=== PATIENT | male | born 1970 | race Caucasian/White ===

== ENCOUNTER 2019-09-04 13:38 | Inpatient (IN) | payer OTHER ==
[~2019-09-04] VITALS: Ht 180 cm; Wt 102.0 kg
[2019-09-04] MEDS ORDERED: NITROGLYCERIN 0.4 MG SL TABS BTL 25'S SL ONE (13:45)
[2019-09-04] MEDS ORDERED: ASPIRIN 81 MG CHEW (CHILDREN'S ASA) PO ONE (13:45)
[2019-09-04] MEDS ORDERED: ASPIRIN 81 MG CHEW (CHILDREN'S ASA) ONE (13:45)
[2019-09-04] MEDS: NITROGLYCERIN 0.4 MG SL TABS BTL 25'S SL PRN ×2 (13:50→14:08)
[2019-09-04 13:58] LABS: BASOPHILS # (AUTO) 0.1 10^3/uL (0.0-0.1); BASOPHILS % (AUTO) 1 % (0-10); EOSINOPHILS # (AUTO) 0.3 10^3/uL (0.0-0.3); EOSINOPHILS % (AUTO) 3 % (0-10); HEMATOCRIT 44 % (40-54); HEMOGLOBIN 14.4 G/DL (13.3-17.7); LYMPHOCYTES # (AUTO) 2.4 X 10^3 (1.0-4.0); LYMPHOCYTES % (AUTO) 25 % (12-44); MEAN CORPUSCULAR HEMOGLOBIN 27 PG (25-34); MEAN CORPUSCULAR HGB CONC 33 G/DL (32-36); MEAN CORPUSCULAR VOLUME 82 FL (80-99); MEAN PLATELET VOLUME 10.4 FL (7.4-10.4); MONOCYTES % (AUTO) 11 % (0-12); NEUTROPHILS # (AUTO) 5.8 X 10^3 (1.8-7.8); NEUTROPHILS % (AUTO) 61 % (42-75); PLATELET COUNT 327 10^3/uL (130-400); RED CELL DISTRIBUTION WIDTH 14.6 % (10.0-14.5); WHITE BLOOD COUNT 9.5 10^3/uL (4.3-11.0)
--- NOTE | 2019-09-04 13:58 | ED Chest Pain ---
General Stated Complaint: CHEST PAIN Source: patient Exam Limitations: no limitations History of Present Illness Date Seen by Provider: Sep 04, 2019 Time Seen by Provider: 13:45 Initial Comments To ER with central chest pressure. He rates this at 7 out of 10. This began one hour ago while at rest at work. He's never had this before except for yesterday when he had it briefly for a few minutes while at rest and it resolved on its own. He states that his father of a heart attack at the age of 34 but he didn't know him well and does not know the details surrounding that. He does have some shortness of breath but no nausea or diaphoresis. He is a diabetic with high cholesterol. He is a nonsmoker area he has no personal history of he art disease. 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 NTG SL WHEEL SETTER: No Associated Symptoms: No nausea/vomiting Allergies and Home Medications Allergies Coded Allergies: No Known Drug Allergies (Unverified , 09/04/19) Patient Home Medication List Home Medication List Reviewed: Yes Review of Systems Review of Systems Constitutional: see HPI EENTM: No Symptoms Reported Respiratory: No Symptoms Reported Cardiovascular: See HPI, Chest Pain Gastrointestinal: No Symptoms Reported Genitourinary: No Symptoms Reported Musculoskeletal: no symptoms reported Skin: no symptoms reported Psychiatric/Neurological: No Symptoms Reported Endocrine: No Symptoms Reported Hematologic/Lymphatic: No Symptoms Reported Physical Exam Vital Signs Capillary Refill : Height, Weight, BMI Height: '" Weight: lbs. oz. kg; BMI Method: General Appearance: No Apparent Distress, WD/WN HEENT: PERRL/EOMI, TMs Normal Neck: Full Range of Motion, Normal Inspection Respiratory: No Accessory Muscle Use, No Respiratory Distress Cardiovascular: Regular Rate, Rhythm, Normal Peripheral Pulses Gastrointestinal: Normal Bowel Sounds, Non Tender, Soft Extremity: Normal Capillary Refill, Normal Inspection Neurologic/Psychiatric: Alert, Oriented x3 Skin: Normal Color, Warm/Dry Progress/Results/Core Measures Results/Orders Lab Results Laboratory Tests Test 09/04/19 13:45 Range/Units My Orders Orders - SILVANO ANGELES APRN Cbc With Automated Diff (09/04/19 13:45) Magnesium (09/04/19 13:45) Chest 1 View, Ap/Pa Only (09/04/19 13:45) Ekg Tracing (09/04/19 13:45) Comprehensive Metabolic Panel (09/04/19 13:45) Myoglobin Serum (09/04/19 13:45) Protime With Inr (09/04/19 13:45) Partial Thromboplastin Time (09/04/19 13:45) O2 (09/04/19 13:45) Monitor-Rhythm Ecg Trace Only (09/04/19 13:45) Lipid Panel (09/05/19 06:00) Ed Iv/Invasive Line Start (09/04/19 13:45) Troponin I (09/04/19 13:45) Aspirin Chewable Tablet (Baby Aspirin Ch (09/04/19 13:45) Nitroglycerin 0.4 Mg Btl 25's (Nitrostat (09/04/19 13:45) Departure Impression Primary Impression: Chest pain Qualified Codes: R07.9 - Chest pain, unspecified Disposition: ADMITTED INPATIENT Condition: Stable Admissions Decision to Admit Reason: Admit from ER (General) Decision to Admit/Date: Sep 04, 2019 Time/Decision to Admit Time: 13:58 Departure-Patient Inst. Referrals: ANTONIO KATHLEEN DO (PCP/Family) Primary Care Physician SILVANO ANGELES APRN Sep 04, 2019 13:58
[2019-09-04 14:08] LABS: ALBUMIN 4.9 GM/DL (3.2-4.5); PROTHROMBIN TIME PATIENT 13.3 SEC (12.2-14.7)
[2019-09-04 14:09] LABS: CHLORIDE 103 MMOL/L (98-107); POTASSIUM 3.6 MMOL/L (3.6-5.0); SODIUM 142 MMOL/L (135-145)
[2019-09-04 14:10] LABS: CALCIUM 9.8 MG/DL (8.5-10.1)
[2019-09-04] MEDS ORDERED: NS IV 1000 ML 1,000 ML ONE (14:10)
[2019-09-04] MEDS ORDERED: MIDAZOLAM 5 MG/5 ML (VERSED) VIAL ONE (14:10)
[2019-09-04] MEDS ORDERED: fentaNYL INJECTION 100 MCG/2 ML AMP ONE (14:10)
[2019-09-04 14:11] LABS: GLUCOSE 157 MG/DL (70-105)
[2019-09-04 14:12] LABS: CARBON DIOXIDE 26 MMOL/L (21-32)
[2019-09-04] MEDS ORDERED: METFORMIN (14:12)
[2019-09-04] MEDS ORDERED: ATORVASTATIN (14:12)
[2019-09-04] MEDS ORDERED: LISINOPRIL (14:12)
[2019-09-04 14:13] LABS: BILIRUBIN,TOTAL 0.4 MG/DL (0.1-1.0)
[2019-09-04 14:14] LABS: ALKALINE PHOSPHATASE 89 U/L (40-136)
[2019-09-04] MEDS ORDERED: LIDOCAINE 1% INJ 20 ML 20 ML VIAL ONE (14:14)
[2019-09-04 14:15] LABS: CREATININE SERUM 0.99 MG/DL (0.60-1.30); GFR ESTIMATED > 60
[2019-09-04] MEDS ORDERED: HEParin (CATH LAB) 2,000 ML IV ONE (14:15)
[2019-09-04 14:16] LABS: BUN/CREATININE RATIO 15
[2019-09-04 14:18] LABS: ALANINE AMINOTRANSFERASE 36 U/L (0-55); MAGNESIUM 1.9 MG/DL (1.6-2.4)
--- NOTE | 2019-09-04 14:20 | NUR ---
CONSENT FOR HEART CATH SIGNED
--- NOTE | 2019-09-04 14:25 | Cardiology History & Physical ---
HPI-Cardiology Cardiology Consultation Date of Consultation 09/04/19 Date of Admission Time Seen by Provider: 14:22 Indication: Chest pain HPI 48 years old gentleman with history of hypertension, hyperlipidemia, family history of heart disease, father in his 30s with heart attack. Had an episode of chest pain yesterday which was short-lived in the retrosternal area, started having chest pain this afternoon and came to the emergency room. Given 3 sublingual nitroglycerin still having mild chest pain. No palpitation, no shortness of breath. No syncope or near syncopal episodes. No previous cardiac history, blood pressure is elevated. PMH-Cardiology Surgeries No Respiratory No Cardiovascular Yes Neurological No Genitourinary No Gastrointestinal No Musculoskeletal No Endocrine No HEENT No Cancer No Psychosocial No Integumentary No Social History Patient Social History Marrital Status: Employed/Student: employed Alcohol Use: Denies Use Recreational Drug Use: No Recent Foreign Travel: No Contact w/other who traveled: No Recent Infectious Disease Expo: No Family Hx Other Father in his 30s with heart attack ROS-Cardiology Review of Systems General: No Chills, No Night Sweats, No Fatigue, No Malaise, No Appetite HEENT: No Head Aches, No Visual Changes, No Eye Pain, No Ear Pain, No Dysphasia, No Sinus Congestion, No Post Nasal Drip, No Sore Throat Pulmonary: No Dyspnea, No Cough, No Pleuritic Chest Pain Cardiovascular: Chest Pain; No: Palpitations, Orthopnea, Paroxysmal Noc. Dyspnea, Edema, Lt Headedness Gastrointestinal: No: Nausea, Vomiting, Abdominal Pain, Diarrhea, Constipation, Melena, Hematochezia Genitourinary: No Dysuria, No Frequency, No Incontinence, No Hematuria, No Retention Musculoskeletal: No: neck pain, shoulder pain, arm pain, back pain, hand pain, leg pain, foot pain Neurological: No: Weakness, Numbness, Incoordination, Change in speech, Confusion, Seizures Home Medications & Allergies Allergies: Coded Allergies: No Known Drug Allergies (Unverified , 09/04/19) Home Medication List Reviewed: Yes Exam-Cardiology Vital Signs Vital Signs Date Time Temp Pulse Resp B/P (MAP) Pulse Ox O2 Delivery O2 Flow Rate FiO2 09/04/19 14:23 36.1 104 18 198/117 (142) 96 09/04/19 13:40 Room Air Exam General Appearance: Alert, Oriented X3, Cooperative, No Acute Distress HEENT: Atraumatic, PERRLA Respiratory: Clear to Auscultation, Normal Air Movement Cardiovascular: Regular Rate, Normal S1, Normal S2, No Murmurs Abdominal: Normal Bowel Sounds, Soft, No Tenderness, No Hepatosplenomegaly, No Masses Extremities: No Clubbing, No Cyanosis, No Edema, Normal Pulses, No Tenderness/Swelling Skin: No Rashes, No Breakdown, No Significant Lesion Neuro: Normal Gait, Normal Speech, Strength at 5/5 X4 Ext, Normal Tone, Sensation Intact Psych/Mental Status: Mental Status NL, Mood NL Results Labs Labs Laboratory Tests 09/04/19 13:45: White Blood Count 9.5, Red Blood Count 5.38, Hemoglobin 14.4, Hematocrit 44, Mean Corpuscular Volume 82, Mean Corpuscular Hemoglobin 27, Mean Corpuscular Hemoglobin Concent 33, Red Cell Distribution Width 14.6H, Platelet Count 327, Mean Platelet Volume 10.4, Neutrophils (%) (Auto) 61, Lymphocytes (%) (Auto) 25, Monocytes (%) (Auto) 11, Eosinophils (%) (Auto) 3, Basophils (%) (Auto) 1, Neutrophils # (Auto) 5.8, Lymphocytes # (Auto) 2.4, Monocytes # (Auto) 1.0, Eosinophils # (Auto) 0.3, Basophils # (Auto) 0.1, Prothrombin Time 13.3, INR Comment 1.0, Activated Partial Thromboplast Time 33, Sodium Level 142, Potassium Level 3.6, Chloride Level 103, Carbon Dioxide Level 26, Anion Gap 13, Blood Urea Nitrogen 15, Creatinine 0.99, Estimat Glomerular Filtration Rate > 60, BUN/C reatinine Ratio 15, Glucose Level 157H, Calcium Level 9.8, Corrected Calcium , Magnesium Level 1.9, Total Bilirubin 0.4, Aspartate Amino Transf (AST/SGOT) 23, Alanine Aminotransferase (ALT/SGPT) 36, Alkaline Phosphatase 89, Myoglobin 48.9, Troponin I 0.038H, Total Protein 8.0, Albumin 4.9H A/P-Cardiology Admission Diagnosis Non-ST elevation myocardial infarction Coronary artery disease Hypertensive emergency Hyperlipidemia Admission Status: Inpatient Order (span 2 midnights) Reason for Inpatient Admission: Non-ST elevation myocardial infarction Hypertensive emergency Assessment/Plan Chest pain, non-ST elevation myocardial infarction, mild elevation in troponin. Discussed the management plan recommended cardiac catheterization possible PTCA. I will proceed with the procedure today. Directly brought from the emergency room Hypertensive emergency, blood pressure is elevated, given multiple doses of sublingual nitroglycerin, I will use IV beta blockers and JONATHAN inhibitor in the Director Perioperative. Hyperlipidemia, monitor lipids, restart medication Family history of heart attack, father in his 30s with heart attack Addendum on September 04, 2019 at 1535 p.m. Hospital course: Patient underwent cardiac catheterization showing severe multivessel disease, arrangement to transfer to [facility] for evaluation for CABG was made. Final diagnoses: Non-ST elevation myocardial infarction Coronary artery disease Hypertensive emergency Hyperlipidemia Clinical Quality Measures AMI/AHF: ASA po Prior to arrival: AMY Chen MD Sep 04, 2019 14:25
--- NOTE | 2019-09-04 14:37 | Diagnostic Imaging Report ---
INDICATION: Chest pain began one hour ago . FINDINGS: The heart size and its configuration are unremarkable. There is no vascular congestion. The mediastinal contour was normal. The lungs clear. No failure, effusion or pneumothorax. IMPRESSION: Negative. Dictated by: Dictated on workstation # [id number]
[2019-09-04] MEDS ORDERED: VERAPAMIL 5 MG/2 ML (CALAN) VIAL IV ONE (14:48)
[2019-09-04] MEDS ORDERED: HEParin 1000 UNIT/ML (10ML VIAL) FOR BOLUS ONE (14:48)
[2019-09-04] MEDS ORDERED: NITRO DRIP 25000 MCG/D5W 250 ML IV ONE (14:48)
[2019-09-04] MEDS ORDERED: meTOprolol 5 MG/5 ML (LOPRESSOR) VIAL ONE (14:54)
[2019-09-04] MEDS ORDERED: NS IV 1000 ML 1,000 ML IV SCH (15:32)
--- NOTE | 2019-09-04 15:35 | Discharge Inst-Post CATH ---
Discharge Inst-CATH/EP Problems Reviewed?: Yes Post Cardiac Cath/EP D/C Inst Follow Up/Plan Appointment with Dr. Guevara's office in 2 weeks <b>CARDIAC CATH/EP PROCEDURE DISCHARGE INSTRUCTIONS</b> ACTIVITY * Go Home directly and rest. * Limit activity of the leg (or wrist if it was used) for 7 days including aerobics, swimming, jogging, bicycling, etc. * Restrict stair-climbing for 7 days if possible, if not, climb up with your non-cath leg, then bring together on the same step. * Avoid lifting, pushing, pulling or excessive movement of the affected extremity for 7 days. * Customary sexual activity may be resumed after 2 days-use caution not to use a position that strains or causes pain to the affected extremity. * No driving for 24 hours. * NO SMOKING. * Avoid straining for bowel movements for 7 days. * Gentle walking on level ground is allowed. * Returning to work will depend on the type of procedure and the results. Your doctor will discuss this with you. CALL YOUR DOCTOR FOR ANY OF THE FOLLOWING: *If bleeding from the puncture site occurs- Apply gentle pressure to site with clean cloth and call your doctor or EMS. * If a knot or lump forms under the skin, increases in size, or causes pain. * If bruising appears to be worsening or moving further down your leg instead of disappearing. * Temperature above 101 F. CARE OF YOUR GROIN INCISION; * Bruising or purple discoloration of the skin near the puncture site is common. * You may shower only, no bathtub bathing for 5 days. Be careful to avoid slipping as your leg may feel stiff. * If a closure device was used on your femoral artery, please see the attached guide regarding care of the device and your leg. * Leave dressing on FOR 24 hours. CARE OF YOUR WRIST INCISION; * Bruising or purple discoloration of the skin near the puncture site is common. * You may shower. * DO NOT submerge wrist. * Leave dressing on FOR 24 hours. AMY GUEVARA MD Sep 04, 2019 15:35
--- NOTE | 2019-09-04 15:43 | Cardiac Cath Report ---
Cardiac Cath Report Physician (s)/Esol Instructor (s) Physician AMY ROCKWELL MD Pre-Procedure Diagnosis Pre-Procedure Diagnosis: Non-ST elevation myocardial infarction Post-Procedure Note Procedure Start Date: Sep 04, 2019 Name of Procedure: Left heart Catheterization Left ventriculogram Aortic arch angiogram Findings/Procedure Note PROCEDURE NOTE: 48 years old gentleman with history of hypertension, hyperlipidemia, strong family history of heart disease admitted with non-ST elevation of cardiac infarction has been having chest pain since the morning. Some improvement with nitroglycerin but no full relief, slight elevation in troponin, no acute EKG changes, decision was made to proceed with cardiac catheterization possible PTCA. After explaining the procedure to the patient, all pros and cons were explained, all questions were answered. The patient signed the consent and then he was placed on the cardiac catheterization laboratory. Groin was prepped SL fashion local anesthesia was used. Sheath placed in the right radial artery, [place] catheter was used addressed of the left ventricular cavity, pressure was measured, left ventricular gram was done, pullback LV to aorta was done. Evaluated the right and left coronary system, angiogram was done then it was pulled to the aortic arch and aortic arch angiogram was done. At the end of the procedure the sheath was removed. Vascular band was used FINDINGS: Hemodynamics LV 125/24, elevated left ventricular end-diastolic pressure Aorta 140/97 mean of 116 ANATOMY: Left Main is free of obstructive disease Left Anterior Descending had ulcerated plaque proximally, multiple segment of s evere stenosis in the mid and distal LAD Left Circumflex to severe lesions at the mid and distal circumflex artery Right Coronory Artery is large dominant artery with moderate disease at the proximal and and midportion severe disease at the right PDA LV Gram was done showing normal left ventricular size with normal contraction. Estimated ejection fraction 60 percent Aorta evaluation showed normal aortic arch, no dissection, no aneurysm, normal origin of the right brachiocephalic artery, left subclavian and left carotid arteries CONCLUSION: 1. Severe multivessel disease including multiple segment of severe stenosis in the proximal and mid and distal LAD, mid and distal circumflex artery, moderate disease in the proximal and midright coronary artery has severe disease of the right PDA. 2. Normal left ventricular size and systolic function estimated ejection fraction 60 percent, elevated left ventricular end-diastolic pressure 3. Normal aortic arch and great vessels of the neck DISCUSSION AND RECOMMENDATION: Hospital course: Patient was admitted directly from the emergency room to the catheter lab, procedure was done, he was severely hypertensive. I started him on nitroglycerin drip, after reviewing his coronary anatomy I discussed with him and his the management per recommended transfer to a tertiary care center for evaluation for CABG. Arrangement were made for transfer to [facility], I contacted Dr. eduarod who graciously accepted the patient. Final diagnosis Non-ST elevation myocardial infarction Coronary artery disease Hypertensive emergency Hyperlipidemia Anesthesia Type: Conscious Sedation Estimated blood loss (mL): 5 ml Contrast Amount: 63 ml Total Radiation Dose: 521 mGy Post-Procedure Diagnosis Post-operative diagnosis: Non-ST elevation myocardial infarction Coronary artery disease Hypertensive emergency Hyperlipidemia AMY ROCKWELL MD Sep 04, 2019 15:43
[2019-09-04] MEDS ORDERED: PATIENT MAY USE OWN MEDS, ALL PO SCH (15:45)
[2019-09-04] MEDS ORDERED: NITRO DRIP 25000 MCG/D5W 250 ML IV SCH (15:45)
[2019-09-04 16:15] VITALS: BP 158/92
--- NOTE | 2019-09-04 16:42 | NUR ---
PT ARRIVED TO UNIT AT 1538, RIGHT WRIST ASSESSED AND IS BENIGN. PT DENIES ANY CHEST PAIN OR OTHER COMPLAINTS. PT WILL GO TO ROOM 290 AT [facility] AND REPORT CALLED TO [phone]. [facility] CALLED AND PICKED UP PATIENT AT 1642. PT DENIED ANY COMPLAINTS AND WRIST SITE BENIGN UPON DISCHARGE. ALL PERSONAL BELONGINGS WITH PATIENTS .
[2019-09-05] MEDS ORDERED: ASPIRIN E.C. 81 MG (ECOTRIN) TAB PO SCH (09:00)
== END 2019-09-04 16:42 | disposition short-term general hospital (02) | DRG 282 ==
LOC: EDUNIT# 13:38 → ER 13:40 → CATH 14:20 → ICU 15:30
PROVIDERS: ADMIT Internal Medicine Cardiovascular Disease; ATTEND Internal Medicine Cardiovascular Disease
PROC: 4A023N7 Measurement of Cardiac Sampling and Pressure, Left Heart, Percutaneous Approach (ICD-10-PCS; principal; 2019-09-04)
PROC: B2151ZZ Fluoroscopy of Left Heart using Low Osmolar Contrast (ICD-10-PCS; 2019-09-04)
PROC: B3101ZZ Fluoroscopy of Thoracic Aorta using Low Osmolar Contrast (ICD-10-PCS; 2019-09-04)
DX: I21.4 Non-ST elevation (NSTEMI) myocardial infarction (principal); I25.10 Atherosclerotic heart disease of native coronary artery without angina pectoris; I16.0 Hypertensive urgency; E78.5 Hyperlipidemia, unspecified; E78.00 Pure hypercholesterolemia, unspecified; E11.9 Type 2 diabetes mellitus without complications; Z82.49 Family history of ischemic heart disease and other diseases of the circulatory system
CPT/HCPCS: 36221; 36415; 71045; 80053; 83735; 83874; 84484; 85025; 85610; 85730; 93005; 93041; 93458

== ENCOUNTER → 2019-09-17 | Outpatient (CLI) | payer OTHER ==
[~2019-09-17] MED LIST: ATORVASTATIN; LISINOPRIL; METFORMIN
[2019-09-17 17:13] LABS: BASOPHILS % (AUTO) 1 % (0-10); EOSINOPHILS % (AUTO) 2 % (0-10); HEMATOCRIT 32 % (40-54); HEMOGLOBIN 10.2 G/DL (13.3-17.7); LYMPHOCYTES % (AUTO) 20 % (12-44); MEAN CORPUSCULAR HEMOGLOBIN 26 PG (25-34); MEAN CORPUSCULAR HGB CONC 32 G/DL (32-36); MEAN CORPUSCULAR VOLUME 83 FL (80-99); MEAN PLATELET VOLUME 10.1 FL (7.4-10.4); MONOCYTES % (AUTO) 9 % (0-12); NEUTROPHILS % (AUTO) 68 % (42-75); PLATELET COUNT 514 10^3/uL (130-400); RED CELL DISTRIBUTION WIDTH 14.4 % (10.0-14.5)
[2019-09-17 17:14] LABS: BASOPHILS # (AUTO) 0.1 10^3/uL (0.0-0.1); EOSINOPHILS # (AUTO) 0.3 10^3/uL (0.0-0.3); LYMPHOCYTES # (AUTO) 2.6 X 10^3 (1.0-4.0); MONOCYTES # (AUTO) 1.2 X 10^3 (0.0-1.0); NEUTROPHILS # (AUTO) 8.9 X 10^3 (1.8-7.8)
[2019-09-17 17:29] LABS: ALBUMIN 4.1 GM/DL (3.2-4.5); BUN/CREATININE RATIO 24; CALCIUM 9.5 MG/DL (8.5-10.1); CARBON DIOXIDE 26 MMOL/L (21-32); CHLORIDE 96 MMOL/L (98-107); CREATININE SERUM 0.78 MG/DL (0.60-1.30); GFR ESTIMATED > 60; GLUCOSE 116 MG/DL (70-105); POTASSIUM 4.9 MMOL/L (3.6-5.0); SODIUM 137 MMOL/L (135-145)
[2019-09-18 14:52] LABS: PHOSPHORUS 4.9 MG/DL (2.3-4.7)
== END ==
LOC: LAB FS 16:44
PROVIDERS: ATTEND Thoracic Surgery (Cardiothoracic Vascular Surgery)
DX: I25.10 Atherosclerotic heart disease of native coronary artery without angina pectoris (principal); I10 Essential (primary) hypertension; Z20.828 Contact with and (suspected) exposure to other viral communicable diseases
CPT/HCPCS: 36415; 80069; 85025; 86769

== ENCOUNTER → 2020-07-29 | Outpatient (CLI) | payer OTHER | LOC: CARD 10:30 | PROVIDERS: ATTEND Internal Medicine Cardiovascular Disease | DX: I34.0 Nonrheumatic mitral (valve) insufficiency (principal); I11.9 Hypertensive heart disease without heart failure; Z95.1 Presence of aortocoronary bypass graft | CPT/HCPCS: 93306 ==

== ENCOUNTER → 2020-09-12 | Outpatient (CLI) | payer OTHER ==
[~2020-09-12] VITALS: Ht 180 cm; Wt 98.0 kg
[~2020-09-12] MED LIST changes: +CATHETER FLUSH 10 ML SYR IV PRN
[2020-09-12 09:33] VITALS: BP 150/84
--- NOTE | 2020-09-12 16:02 | STRESS TEST ---
DATE OF SERVICE: 09/12/2020 RESTING AND POST EXERCISE TECHNETIUM-99M TETROFOSMIN SPECT IMAGING ORDERING PHYSICIAN: Dr. Guevara. PRIMARY PHYSICIAN: Dr. Jenkins. CLINICAL DIAGNOSIS: Chest discomfort, hypertension. Baseline images were carried out after injection of 10.76 mCi of technetium-99m Tetrofosmin. This was followed by exercise on a treadmill. Yogi protocol was employed. After the patient had attained 85% of maximum predicted heart rate, 30.9 mCi of technetium-99m Tetrofosmin were injected and the exercise was continued for another minute. He exhibited a hypertensive blood pressure response exercise. There was [address] segment depression in the immediate post-exercise phase. The patient did not report symptoms. Review of images at rest and following stress does not indicate any distinct evidence of significant myocardial ischemia. Some degree of breast attenuation is seen both at rest and following exercise. Image acquisition after stress is difficult because of considerable patient motion. Gated images show normal global left ventricular systolic function with a calculated ejection fraction of 56%. Left ventricular end diastolic volume is 66 mL. TID is absent (1.02). CONCLUSIONS: 1. No evidence of any significant myocardial ischemia or infarction on this study. 2. Normal regional wall motion. 3. Normal global left ventricular systolic function with a calculated ejection fraction of 56%. 4. Hypertensive blood pressure response to exercise. Job ID: [id number] DocumentID: [id number] Dictated Date: 09/12/2020 12:38:31 Merchandise Executive Date: 09/12/2020 16:00:13 Dictated By: BRANDEE RENEE MD, MA, FACP, FACC,
== END ==
LOC: CARD 08:30
PROVIDERS: ATTEND Internal Medicine Cardiovascular Disease
DX: R07.9 Chest pain, unspecified (principal); I10 Essential (primary) hypertension
CPT/HCPCS: 78452; 93017; A9502

== ENCOUNTER → 2021-05-01 | Outpatient (CLI) | payer OTHER ==
[~2021-05-01] MED LIST changes: -CATHETER FLUSH 10 ML SYR IV PRN
== END ==
LOC: LABNPT 06:18
PROVIDERS: ATTEND Ophthalmology Retina Specialist
DX: Z01.812 Encounter for preprocedural laboratory examination (principal); Z20.822 Contact with and (suspected) exposure to COVID-19
CPT/HCPCS: 87635; 87636

== ENCOUNTER → 2021-05-29 | Outpatient (CLI) | payer OTHER | LOC: LABNPT 08:37 | PROVIDERS: ATTEND Ophthalmology Retina Specialist | DX: Z20.822 Contact with and (suspected) exposure to COVID-19 (principal) | CPT/HCPCS: 87636 ==

== ENCOUNTER 2021-08-28 13:47 | Inpatient (IN) | payer OTHER ==
[~2021-08-28] VITALS: Ht 180.3 cm; Wt 100.7 kg
[2021-08-28] MEDS ORDERED: ONDANSETRON 4 MG/2 ML (SDV) Z0FRAN IVP ONE (14:00)
[2021-08-28] MEDS ORDERED: PANTOPRAZOLE 40 MG (PROTONIX) VIAL IV ONE (14:00)
--- NOTE | 2021-08-28 14:06 | ED Abdominal Pain ---
General Chief Complaint: Abdominal/GI Problems Stated Complaint: HIGH BLOOD SUGAR,WEAKNESS,DIZZINESS Source of Information: Patient Exam Limitations: No Limitations History of Present Illness Date Seen by Provider: August 28, 2021 Time Seen by Provider: 14:03 Initial Comments To ER by private vehicle from home with reports of epigastric abdominal pain, high blood sugar in the 260 range, weakness, nausea, dizziness and fatigue. He had trouble walking from his bedroom to the living room due to the weakness. He has had dark black stools since yesterday. He had 1 dark black stool on ay of last week. No history of this. He is on aspirin and metoprolol. History of coronary artery disease status post three-vessel CABG and diabetes. He thought he might be constipated so he took a bottle of magnesium citrate prior to coming here which he then vomited. Timing/Duration: 1-2 Days Severity/Quality: Moderate Location: Epigastric Radiation: No Radiation Activities at Onset: None Associated Symptoms: Nausea/Vomiting Allergies and Home Medications Allergies Coded Allergies: No Known Drug Allergies (Unverified , 09/04/19) Patient Home Medication List Home Medication List Reviewed: Yes [Atorvastatin] , (Reported) Entered as Reported by: KEEGAN MAURER on 09/04/191411 [Lisinopril] , (Reported) Entered as Reported by: KEEGAN MAURER on 09/04/191411 [Metformin] , (Reported) Entered as Reported by: KEEGAN MAURER on 09/04/191411 Review of Systems Review of Systems Constitutional: see HPI EENTM: No Symptoms Reported Respiratory: Denies See HPI, Denies Cough, Denies Orthopnea, Denies Shortness of Air Cardiovascular: See HPI; Denies Chest Pain, Denies Edema, Denies Irregular Heart Rate; Lightheadedness; Denies Palpitations, Denies Syncope Gastrointestinal: See HPI, Abdominal Pain, Diarrhea, Nausea Genitourinary: No Symptoms Reported Musculoskeletal: no symptoms reported Skin: no symptoms reported Psychiatric/Neurological: No Symptoms Reported Endocrine: No Symptoms Reported Hematologic/Lymphatic: No Symptoms Reported Past Squtthz-Qycvqc-Tmqtsu Hx Past Medical History Surgeries: No Respiratory: No Cardiac: Yes High Cholesterol, Hypertension Neurological: No Genitourinary: No Gastrointestinal: No Musculoskeletal: No Endocrine: No HEENT: No Cancer: No Psychosocial: No Integumentary: No Physical Exam Vital Signs Vital Signs - First Documented 08/28/21 14:02 Temp 36.5 Pulse 105 Resp 18 B/P (MAP) 120/71 (87) Pulse Ox 97 Capillary Refill : Height/Weight/BMI Height: '" Weight: lbs. oz. kg; 30.24 BMI Method: General Appearance: WD/WN, no apparent distress, other (Pale, pale conjunctivae. Heart rate is 100 sinus, blood pressure 120/71. Alert mentating well. He does appear ill.) HEENT: PERRL/EOMI, normal ENT inspection, other (Pale conjunctivae) Neck: non-tender, full range of motion Respiratory: normal breath sounds, no respiratory distress, no accessory muscle use Cardiovascular: regular rate, rhythm, no murmur Gastrointestinal: normal bowel sounds, soft, tenderness (Minimal epigastric tenderness) Extremities: normal range of motion, non-tender Neurologic/Psychiatric: alert, normal mood/affect, oriented x 3 Skin: normal color, warm/dry Progress/Results/Core Measures Results/Orders Lab Results Laboratory Tests Test 08/28/21 13:58 Range/Units White Blood Count 15.5 H 4.3-11.0 10^3/uL Red Blood Count 2.87 L 4.30-5.52 10^6/uL Hemoglobin 7.9 L 13.3-17.7 g/dL Hematocrit 25 L 40-54 % Mean Corpuscular Volume 86 80-99 fL Mean Corpuscular Hemoglobin 28 25-34 pg Mean Corpuscular Hemoglobin Concent 32 32-36 g/dL Red Cell Distribution Width 14.0 10.0-14.5 % Platelet Count 314 130-400 10^3/uL Mean Platelet Volume 10.9 9.0-12.2 fL Immature Granulocyte % (Auto) 1 % Neutrophils (%) (Auto) 73 42-75 % Lymphocytes (%) (Auto) 18 12-44 % Monocytes (%) (Auto) 7 0-12 % Eosinophils (%) (Auto) 0 0-10 % Basophils (%) (Auto) 1 0-10 % Neutrophils # (Auto) 11.3 H 1.8-7.8 10^3/uL Lymphocytes # (Auto) 2.7 1.0-4.0 10^3/uL Monocytes # (Auto) 1.1 H 0.0-1.0 10^3/uL Eosinophils # (Auto) 0.0 0.0-0.3 10^3/uL Basophils # (Auto) 0.1 0.0-0.1 10^3/uL Immature Granulocyte # (Auto) 0.2 H 0.0-0.1 10^3/uL Neutrophils % (Manual) 78 % Lymphocytes % (Manual) 17 % Monocytes % (Manual) 5 % Microcytosis SLIGHT Sodium Level 135 135-145 MMOL/L Potassium Level 4.6 3.6-5.0 MMOL/L Chloride Level 102 98-107 MMOL/L Carbon Dioxide Level 21 21-32 MMOL/L Anion Gap 12 5-14 MMOL/L Blood Urea Nitrogen 39 H 7-18 MG/DL Creatinine 0.75 0.60-1.30 MG/DL Estimat Glomerular Filtration Rate 110 BUN/Creatinine Ratio 52 Glucose Level 268 H 70-105 MG/DL Calcium Level 8.5 8.5-10.1 MG/DL Corrected Calcium 8.7 8.5-10.1 MG/DL Total Bilirubin 0.3 0.1-1.0 MG/DL Aspartate Amino Transf (AST/SGOT) 19 5-34 U/L Alanine Aminotransferase (ALT/SGPT) 37 0-55 U/L Alkaline Phosphatase 66 40-136 U/L Troponin I < 0.028 <0.028 NG/ML Total Protein 5.7 L 6.4-8.2 GM/DL Albumin 3.7 3.2-4.5 GM/DL Lipase 23 8-78 U/L My Orders Orders - SILVANO ANGELES APRN Ekg Tracing (08/28/21 14:01) Cbc With Automated Diff (08/28/21 14:00) Comprehensive Metabolic Panel (08/28/21 14:00) Lipase (08/28/21 14:00) Ua Culture If Indicated (08/28/21 14:00) Ed Iv/Invasive Line Start (08/28/21 14:00) Troponin I David (08/28/21 14:00) Ekg Tracing (08/28/21 14:00) Chest 1 View, Ap/Pa Only (08/28/21 14:00) Ct Abdomen/Pelvis Wo (08/28/21 14:00) Ondansetron Injection (Zofran Injectio (08/28/21 14:00) Pantoprazole Injection (Protonix Injecti (08/28/21 14:00) Red Cells Leukocytes Reduced (08/28/21 14:00) Type And Screen (08/28/21 14:00) Manual Differential (08/28/21 13:58) Lactated Ringers (Lr 1000 Ml Iv Solution (08/28/21 14:30) Medications Given in ED Current Medications Medications Dose Ordered Sig/Kajal Route Start Time Stop Time Status Last Admin Dose Admin Ondansetron HCl 8 mg ONCE ONCE IVP 08/28/21 14:00 08/28/21 14:03 DC 08/28/21 14:13 8 MG Pantoprazole 40 mg ONCE ONCE IV 08/28/21 14:00 08/28/21 14:03 DC 08/28/21 14:13 40 MG Vital Signs/I&O 08/28/21 14:02 Temp 36.5 Pulse 105 Resp 18 B/P (MAP) 120/71 (87) Pulse Ox 97 Departure Communication (Admissions) 1524-spoke with Dr. Hayward will admit consult Dr. Zelaya. I will do Protonix 40 mg IV twice daily as well as Reglan 10 mg IV 3 times daily. Using the Reglan because his stomach is quite distended on CT and he only had a few strawberries for lunch, no breakfast and no food intake since last night. He is diabetic and I suspect diabetic gastroparesis. He reports nausea and a sensation of stomach fullness. No obstruction on CT. His hemoglobin is low at 7.9, he is short of breath with exertion fatigued and has black stools. His BUN is disproportionately elevated compared to the creatinine supporting diagnosis of upper GI bleed. We will consult Dr. Zelaya for that reason. He is crossmatched for 3 units of packed red cells if he should need them. Repeat CBC for tomorrow morning. Family Conversation NAME: BOOGIE OLIVARES [facility] REC#: [id number] PT STATUS: REG ER : 1970 PHYSICIAN: SILVANO ANGELES APRN ADMIT DATE: 08/28/21/ER Draft Date of Exam:08/28/21 CT ABDOMEN/PELVIS WO PROCEDURE: CT abdomen and pelvis without contrast. TECHNIQUE: Multiple contiguous axial images were obtained through the abdomen and pelvis without the use of intravenous contrast. Auto Exposure Controls were utilized during the CT exam to meet ALARA standards for radiation dose reduction. INDICATION: Mid abdominal pain. COMPARISON: No prior studies are available for comparison. The lung bases are clear. The liver and gallbladder are unremarkable. No biliary ductal dilatation is seen. The pancreas and spleen are unremarkable. This a small accessory spleen in the left upper quadrant. No adrenal mass is seen on the right. There is a fatty adrenal nodule on the left, likely a myolipoma. Kidneys are without calculi or hydronephrosis. Aorta is nonaneurysmal. Small and large bowel loops are normal caliber. There is no obstruction. No free fluid or fluid collection is seen. Bladder and prostate are unremarkable. There are fat-containing inguinal hernias bilaterally. IMPRESSION: 1. No acute abnormality in the abdomen or pelvis is identified. 2. Bilateral fat-containing inguinal hernias. 3. Fatty left adrenal nodule suggestive of small myolipoma. Dictated on workstation # [id number] Dict: 08/28/21 1434 Trans: 08/28/21 1446 [facility] [id number] Interpreted by: MARK RAMOS MD Electronically signed by: NAME: BOOGIE OLIVARES [facility] REC#: [id number] PT STATUS: REG ER : 1970 PHYSICIAN: SILVANO ANGELES APRN ADMIT DATE: 08/28/21/ER Draft Date of Exam:08/28/21 CHEST 1 VIEW, AP/PA ONLY Indication: Nausea and vomiting and dark stools. Time of Exam: 2:24 PM Correlation is made with prior chest 09/04/2019. Heart size is stable. There are changes of median sternotomy. Lungs are clear. No infiltrates are seen. There is no effusion or pneumothorax. IMPRESSION: No acute cardiopulmonary process is detected. Dictated on workstation # [id number] Dict: 08/28/21 1433 Trans: 08/28/21 1437 [facility] [id number] Interpreted by: MARK RAMOS MD Electronically signed by: Impression Primary Impression: Upper GI bleed Additional Impression: Symptomatic anemia Disposition: ADMITTED INPATIENT Condition: Stable Admissions Decision to Admit Reason: Admit from ER (General) Departure-Patient Inst. Referrals: ANTONIO KATHLEEN DO (PCP/Family) Primary Care Physician SILVANO ANGELES APRN August 28, 2021 14:05
[2021-08-28 14:07] LABS: BASOPHILS # (AUTO) 0.1 10^3/uL (0.0-0.1); BASOPHILS % (AUTO) 1 % (0-10); EOSINOPHILS % (AUTO) 0 % (0-10); HEMATOCRIT 25 % (40-54); HEMOGLOBIN 7.9 g/dL (13.3-17.7); LYMPHOCYTES # (AUTO) 2.7 10^3/uL (1.0-4.0); LYMPHOCYTES % (AUTO) 18 % (12-44); MEAN CORPUSCULAR HEMOGLOBIN 28 pg (25-34); MEAN CORPUSCULAR HGB CONC 32 g/dL (32-36); MEAN CORPUSCULAR VOLUME 86 fL (80-99); MEAN PLATELET VOLUME 10.9 fL (9.0-12.2); MONOCYTES # (AUTO) 1.1 10^3/uL (0.0-1.0); MONOCYTES % (AUTO) 7 % (0-12); NEUTROPHILS # (AUTO) 11.3 10^3/uL (1.8-7.8); NEUTROPHILS % (AUTO) 73 % (42-75); PLATELET COUNT 314 10^3/uL (130-400); WHITE BLOOD COUNT 15.5 10^3/uL (4.3-11.0)
[2021-08-28 14:26] LABS: ALBUMIN 3.7 GM/DL (3.2-4.5)
[2021-08-28 14:27] LABS: CHLORIDE 102 MMOL/L (98-107); POTASSIUM 4.6 MMOL/L (3.6-5.0); SODIUM 135 MMOL/L (135-145)
[2021-08-28 14:28] LABS: CALCIUM 8.5 MG/DL (8.5-10.1)
[2021-08-28 14:29] LABS: GLUCOSE 268 MG/DL (70-105); TOTAL PROTEIN 5.7 GM/DL (6.4-8.2)
[2021-08-28 14:30] LABS: CARBON DIOXIDE 21 MMOL/L (21-32)
[2021-08-28] MEDS ORDERED: LACTATED RINGERS 1,000 ML IV SCH (14:30)
[2021-08-28 14:31] LABS: BILIRUBIN,TOTAL 0.3 MG/DL (0.1-1.0)
[2021-08-28 14:32] LABS: ALKALINE PHOSPHATASE 66 U/L (40-136)
[2021-08-28 14:33] LABS: CREATININE SERUM 0.75 MG/DL (0.60-1.30); GFR ESTIMATED 110
[2021-08-28 14:34] LABS: BUN/CREATININE RATIO 52
[2021-08-28 14:36] LABS: ALANINE AMINOTRANSFERASE 37 U/L (0-55); LIPASE 23 U/L (8-78)
--- NOTE | 2021-08-28 14:37 | Diagnostic Imaging Report ---
Indication: Nausea and vomiting and dark stools. Time of Exam: 2:24 PM Correlation is made with prior chest 09/04/2019. Heart size is stable. There are changes of median sternotomy. Lungs are clear. No infiltrates are seen. There is no effusion or pneumothorax. IMPRESSION: No acute cardiopulmonary process is detected. Dictated by: Dictated on workstation # [id number]
--- NOTE | 2021-08-28 14:47 | Diagnostic Imaging Report ---
PROCEDURE: CT abdomen and pelvis without contrast. TECHNIQUE: Multiple contiguous axial images were obtained through the abdomen and pelvis without the use of intravenous contrast. Auto Exposure Controls were utilized during the CT exam to meet ALARA standards for radiation dose reduction. INDICATION: Mid abdominal pain. COMPARISON: No prior studies are available for comparison. The lung bases are clear. The liver and gallbladder are unremarkable. No biliary ductal dilatation is seen. The pancreas and spleen are unremarkable. This a small accessory spleen in the left upper quadrant. No adrenal mass is seen on the right. There is a fatty adrenal nodule on the left, likely a mild low lipoma. Kidneys are without calculi or hydronephrosis. Aorta is nonaneurysmal. Small and large bowel loops are normal caliber. There is no obstruction. No free fluid or fluid collection is seen. Bladder and prostate are unremarkable. There are fat-containing inguinal hernias bilaterally. IMPRESSION: 1. No acute abnormality in the abdomen or pelvis is identified. 2. Bilateral fat-containing inguinal hernias. 3. Fatty left adrenal nodule suggestive of small mild low lipoma. Dictated by: Dictated on workstation # [id number]
[2021-08-28 15:17] LABS: LYMPHOCYTES % (MANUAL) 17 %; MICROCYTOSIS SLIGHT; MONOCYTES % (MANUAL) 5 %; NEUTROPHILS % (MANUAL) 78 %
[2021-08-28 15:23] LABS: BILIRUBIN,URINE NEGATIVE (NEGATIVE); CLARITY,URINE CLEAR; COLOR,URINE YELLOW; GLUCOSE, URINE (UA) 3+ (NEGATIVE); KETONES,URINE 2+ (NEGATIVE); LEUKOCYTE ESTERASE ,URINE NEGATIVE (NEGATIVE); NITRITE,URINE NEGATIVE (NEGATIVE); PH,URINE 5.5 (5-9); PROTEIN,URINE NEGATIVE (NEGATIVE)
[2021-08-28 15:36] LABS: BACTERIA,URINE NEGATIVE /HPF
[2021-08-28 16:48] VITALS: BP 122/60
[2021-08-28] MEDS: NS IV 1000 ML 1,000 ML IV SCH ×2 (17:02→23:50)
--- NOTE | 2021-08-28 19:03 | History & Physical-Hospitalist ---
History of Present Illness HPI/Chief Complaint Patient is a 50-year-old male with past medical history of coronary artery disease status post CABG, hypertension, hyperlipidemia, rwl-yfvrtbv-exnchboce diabetes who presented to the emergency department due to weakness and dark stools. 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 He states he was on a transfer on August 23 and ate some fast food and then had some black stools discontinued on Saturday. He did not have any stools on Saturday and then had a small black stool Saturday. He then developed abdominal pain and start ed feeling very weak and was nauseous. He thought he may be constipated so took about a half a bottle of mag citrate. He did have a large dark stool at that point and then felt as if he was going to pass out. He states he was sweaty and dizzy with this. Anytime he sits up or tries to get to the bathroom he feels lightheaded. He also noticed that his blood sugar was elevated at 260 this morning before he ate. He states his normal fasting blood sugar is around 120. He took a double dose of his metformin and then rechecked his blood sugar and it was 210. When he felt like he was going to pass out his brought him to the ER where he was found to be anemic at 7.9. He denies any increased NSAID use or aspirin. He has no alcohol use either. He was admitted for upper GI bleed and further management. Date Seen 08/28/21 Time Seen by a Provider: 18:36 Attending Physician Nick Riggs DO PCP Admitting Physician: Segun Miner MD Attending Physician: Segun Miner MD Referring Physician Date of Admission August 28, 2021 at 15:20 Home Medications & Allergies Home Medications Reviewed patient Home Medication Reconciliation performed by pharmacy medication reconciliations classroom technology technician and/or nursing. Patients Allergies have been reviewed. Allergies Allergies Coded Allergies No Known Drug Allergies (Unverified09/04/19) Past Pukzlxy-Xxrzau-Abqxup Hx Patient Social History Marrital Status: Employed/Student: employed Tobacco Use?: No Substance use?: No Alcohol Use?: No Pt feels they are or have been: No Immunizations Up To Date First/Initial COVID19 Vaccinat: yes Second COVID19 Vaccination Victor Manuel: yes Current Status Advance Directives: No Communicates: Verbally Primary Language: Faroese Preferred Spoken Language: Faroese Is interpretation needed?: No Sensory deficits: Vision impairment Implanted or Applied Medical D: None Past Medical History Surgeries: CABG Coronary Artery Disease, High Cholesterol, Hypertension Diabetes, Non-Insulin dep Family Medical History Reviewed Nursing Family Hx Review of Systems Constitutional: diaphoresis, malaise, weakness EENTM: no symptoms reported Respiratory: No cough, No short of breath Cardiovascular: No chest pain, No edema; Hx of Intervention; No palpitations; syncope (near syncope) Gastrointestinal: see HPI, abdominal pain, melena, nausea, vomiting Genitourinary: no symptoms reported Musculoskeletal: no symptoms reported Skin: no symptoms reported Psychiatric/Neurological: No Symptoms Reported Physical Exam Physical Exam Vital Signs Vital Signs - First Documented 08/28/21 08/28/21 14:02 16:48 Temp 36.5 Pulse 105 Resp 18 B/P (MAP) 120/71 (87) Pulse Ox 97 O2 Delivery Room Air Capillary Refill : Less Than 3 Seconds Height, Weight, BMI Height: '" Weight: lbs. oz. kg; 30.97 BMI Method: General Appearance: No Apparent Distress, WD/WN HEENT: PERRL/EOMI, Moist Mucous Membranes; No Scleral Icterus (L), No Scleral Icterus (R) Neck: Normal Inspection, Supple Respiratory: Lungs Clear, No Accessory Muscle Use, No Respiratory Distress Cardiovascular: Regular Rate, Rhythm, No JVD, No Murmur Gastrointestinal: Normal Bowel Sounds, Non Tender, Soft Extremity: Normal Capillary Refill, No Calf Tenderness, No Pedal Edema Neurologic/Psychiatric: Alert, Oriented x3, Normal Mood/Affect Skin: Normal Color, Warm/Dry Results Results/Procedures Labs Laboratory Tests 08/28/21 13:58 08/29/21 05:09 Patient resulted labs reviewed. Imaging: Reviewed Imaging Report Imaging [facility] [place] NAME: BOOGIE OLIVARES [facility] REC#: [id number] PT STATUS: REG ER : 1970 PHYSICIAN: SILVANO ANGELES MOBILE SECURITY ARCHITECT ADMIT DATE: 08/28/21/ER Signed Date of Exam:08/28/21 CT ABDOMEN/PELVIS WO PROCEDURE: CT abdomen and pelvis without contrast. TECHNIQUE: Multiple contiguous axial images were obtained through the abdomen and pelvis without the use of intravenous contrast. Auto Exposure Controls were utilized during the CT exam to meet ALARA standards for radiation dose reduction. INDICATION: Mid abdominal pain. COMPARISON: No prior studies are available for comparison. The lung bases are clear. The liver and gallbladder are unremarkable. No biliary ductal dilatation is seen. The pancreas and spleen are unremarkable. This a small accessory spleen in the left upper quadrant. No adrenal mass is seen on the right. There is a fatty adrenal nodule on the left, likely a mild low lipoma. Kidneys are without calculi or hydronephrosis. Aorta is nonaneurysmal. Small and large bowel loops are normal caliber. There is no obstruction. No free fluid or fluid collection is seen. Bladder and prostate are unremarkable. There are fat-containing inguinal hernias bilaterally. IMPRESSION: 1. No acute abnormality in the abdomen or pelvis is identified. 2. Bilateral fat-containing inguinal hernias. 3. Fatty left adrenal nodule suggestive of small mild low lipoma. Dictated by: Dictated on workstation # [id number] Dict: 08/28/21 1434 Trans: 08/28/21 1536 [facility] [id number] Interpreted by: MARK RAMOS MD Electronically signed by: MARK RAMOS MD 08/28/21 1536 [facility] [place] NAME: BOOGIE OLIVARES [facility] REC#: [id number] PT STATUS: REG ER : 1970 PHYSICIAN: SILVANO ANGELES APRN ADMIT DATE: 08/28/21/ER Signed Date of Exam:08/28/21 CT ABDOMEN/PELVIS WO PROCEDURE: CT abdomen and pelvis without contrast. TECHNIQUE: Multiple contiguous axial images were obtained through the abdomen and pelvis without the use of intravenous contrast. Auto Exposure Controls were utilized during the CT exam to meet ALARA standards for radiation dose reduction. INDICATION: Mid abdominal pain. COMPARISON: No prior studies are available for comparison. The lung bases are clear. The liver and gallbladder are unremarkable. No biliary ductal dilatation is seen. The pancreas and spleen are unremarkable. This a small accessory spleen in the left upper quadrant. No adrenal mass is seen on the right. There is a fatty adrenal nodule on the left, likely a mild low lipoma. Kidneys are without calculi or hydronephrosis. Aorta is nonaneurysmal. Small and large bowel loops are normal caliber. There is no obstruction. No free fluid or fluid collection is seen. Bladder and prostate are unremarkable. There are fat-containing inguinal hernias bilaterally. IMPRESSION: 1. No acute abnormality in the abdomen or pelvis is identified. 2. Bilateral fat-containing inguinal hernias. 3. Fatty left adrenal nodule suggestive of small mild low lipoma. Dictated by: Dictated on workstation # [id number] Dict: 08/28/21 1434 Trans: 08/28/21 1536 [facility] [id number] Interpreted by: MARK RAMOS MD Electronically signed by: MARK RAMOS MD 08/28/21 1536 Assessment/Plan Admission Diagnosis Upper GI Bleed Admission Status: Inpatient Order (span 2 midnights) Reason for Inpatient Admission: see below Assessment and Plan Upper GI Bleed Hgb 7.9, down from 10 2 years ago has known CAD and symptomatic so discussed plan for transfusion to keep above 8 Discussed with surgeon he is known to, Dr Zelaya Plan for EGD in AM Continue PPI BID HTN HLD CAD s/p CABG Hold ASA for bleed Hold antihypertensives as is soft on BP NIDDMII BS have been high at home SSI with Accuchecks (ACHS today and then Q6 while NPO) DVT ppx: SCDs only Diagnosis/Problems Diagnosis/Problems (1) CAD (coronary artery disease) Qualifiers: Coronary Disease-Associated Artery/Lesion type: bypass graft [place] vs. transplanted heart: [place] heart Associated angina: without angina Qualified Codes: I25.810 - Atherosclerosis of coronary artery bypass graft(s) without angina pectoris (2) Essential (primary) hypertension Status: Chronic (3) Non-insulin dependent type 2 diabetes mellitus Status: Chronic (4) Hyperlipidemia Status: Chronic Qualifiers: Hyperlipidemia type: mixed hyperlipidemia Qualified Codes: E78.2 - Mixed hyperlipidemia (5) Upper GI bleed Status: Acute (6) Symptomatic anemia Status: Acute SEGUN MINER MD August 28, 2021 19:03
[2021-08-28 19:28] VITALS: BP 102/55
[2021-08-28] MEDS: METOCLOPRAMIDE INJ 10 MG/2 ML (REGLAN) IV SCH (20:24)
[2021-08-28] MEDS: PANTOPRAZOLE 40 MG (PROTONIX) VIAL IV SCH (20:24)
[2021-08-28 20:28] VITALS: BP 122/56
[2021-08-28 20:49] VITALS: BP 105/54
[2021-08-28] MEDS ORDERED: inSUlin ASPART (NovoLOG) 1 UNIT/0.01 ML (CHARGE PER UNIT) SC SCH (21:00)
[2021-08-28] MEDS: inSUlin ASPART (NovoLOG) 1 UNIT/0.01 ML (CHARGE PER UNIT) SC SCH (21:35)
[2021-08-28 22:59] VITALS: BP 103/54
[2021-08-28 23:05] VITALS: BP 103/54
[2021-08-29] VITALS (10 sets, daily range): BP systolic 91–114; BP diastolic 50–64
[2021-08-29] MEDS: NS IV 1000 ML 1,000 ML IV SCH ×2 (03:23→16:01)
[2021-08-29 05:37] LABS: BASOPHILS # (AUTO) 0.1 10^3/uL (0.0-0.1); BASOPHILS % (AUTO) 1 % (0-10); EOSINOPHILS # (AUTO) 0.1 10^3/uL (0.0-0.3); EOSINOPHILS % (AUTO) 1 % (0-10); HEMATOCRIT 24 % (40-54); HEMOGLOBIN 7.8 g/dL (13.3-17.7); LYMPHOCYTES # (AUTO) 3.1 10^3/uL (1.0-4.0); LYMPHOCYTES % (AUTO) 25 % (12-44); MEAN CORPUSCULAR HEMOGLOBIN 28 pg (25-34); MEAN CORPUSCULAR HGB CONC 32 g/dL (32-36); MEAN CORPUSCULAR VOLUME 87 fL (80-99); MEAN PLATELET VOLUME 11.1 fL (9.0-12.2); MONOCYTES # (AUTO) 1.3 10^3/uL (0.0-1.0); MONOCYTES % (AUTO) 10 % (0-12); NEUTROPHILS # (AUTO) 7.5 10^3/uL (1.8-7.8); NEUTROPHILS % (AUTO) 62 % (42-75); PLATELET COUNT 242 10^3/uL (130-400); WHITE BLOOD COUNT 12.2 10^3/uL (4.3-11.0)
[2021-08-29] MEDS: inSUlin ASPART (NovoLOG) 1 UNIT/0.01 ML (CHARGE PER UNIT) SC SCH ×4 (05:37→21:00)
[2021-08-29 05:54] LABS: POTASSIUM 4.4 MMOL/L (3.6-5.0)
[2021-08-29 05:55] LABS: CALCIUM 7.9 MG/DL (8.5-10.1)
[2021-08-29 06:00] LABS: CREATININE SERUM 0.75 MG/DL (0.60-1.30)
[2021-08-29] MEDS ORDERED: NS IV 500 ML 500 ML ONE (08:11)
[2021-08-29] MEDS ORDERED: ASPI-1238 PO (09:22)
[2021-08-29] MEDS ORDERED: METF-478 PO (09:23)
[2021-08-29] MEDS ORDERED: METO50TA7 PO (09:23)
[2021-08-29] MEDS ORDERED: ATOR40TA70 PO (09:24)
--- NOTE | 2021-08-29 11:23 | Progress Note - Hospitalist ---
Subjective HPI/CC On Admission Date Seen by Provider: August 29, 2021 Patient is a 50-year-old male with past medical history of coronary artery disease status post CABG, hypertension, hyperlipidemia, src-egbzsoj-wlfhivhxx diabetes who presented to the emergency department due to weakness and dark stools. 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 He states he was on a transfer on August 23 and ate some fast food and then had some black stools discontinued on Saturday. He did not have any stools on Saturday and then had a small black stool Saturday. He then developed abdominal pain and started feeling very weak and was nauseous. He thought he may be constipated so took about a half a bottle of mag citrate. He did have a large dark stool at that point and then felt as if he was going to pass out. He states he was sweaty and dizzy with this. Anytime he sits up or tries to get to the bathroom he feels lightheaded. He also noticed that his blood sugar was elevated at 260 this morning before he ate. He states his normal fasting blood sugar is around 120. He took a double dose of his metformin and then rechecked his blood sugar and it was 210. When he felt like he was going to pass out his brought him to the ER where he was found to be anemic at 7.9. He denies any increased NSAID use or aspirin. He has no alcohol use either. He was admitted for upper GI bleed and further management. Subjective/Events-last exam Pt reports doing well. No complaints. Doesn't feel lightheaded with ambulation any more. Hasn't had another BM. Planning for EGD today. Objective Exam Vital Signs Vital Signs Date Time Temp Pulse Resp B/P (MAP) Pulse Ox O2 Delivery O2 Flow Rate FiO2 08/29/21 08:43 37.1 95 18 104/64 98 Room Air Capillary Refill : Less Than 3 Seconds General Appearance: No Apparent Distress, WD/WN Respiratory: Lungs Clear, No Respiratory Distress Cardiovascular: Regular Rate, Rhythm, No Murmur Gastrointestinal: Normal Bowel Sounds, Non Tender, Soft Neurologic/Psychiatric: Alert, Oriented x3 Results/Procedures Lab Laboratory Tests 08/28/21 13:58 08/29/21 05:09 Patient resulted labs reviewed. Imaging: Reviewed Imaging Report Assessment/Plan Assessment and Plan Assess & Plan/Chief Complaint Upper GI Bleed Hgb stable but still less tahn 8 so will transfuse another unit has known CAD and symptomatic so discussed plan for transfusion to keep above 8 Discussed with surgeon he is known to, Dr Zelaya Plan for EGD today Continue PPI BID HTN HLD CAD s/p CABG Hold ASA for bleed Hold antihypertensives as is soft on BP NIDDMII BS control improved this AM SSI with Accuchecks DVT ppx: SCDs only Diagnosis/Problems Diagnosis/Problems (1) CAD (coronary artery disease) (2) Essential (primary) hypertension (3) Non-insulin dependent type 2 diabetes mellitus (4) Hyperlipidemia (5) Upper GI bleed Status: Acute (6) Symptomatic anemia Status: Acute SEGUN JAMES MD August 29, 2021 11:23
[2021-08-29] MEDS: PANTOPRAZOLE 40 MG (PROTONIX) VIAL IV SCH ×2 (11:26→20:31)
[2021-08-29] MEDS: METOCLOPRAMIDE INJ 10 MG/2 ML (REGLAN) IV SCH ×3 (11:31→20:31)
--- NOTE | 2021-08-29 13:24 | Consultation - Surgery ---
History of Present Illness History of Present Illness Patient Consulted On(melvin/time) 08/29/21 13:22 Date Seen by Provider: August 29, 2021 Time Seen by Provider: 13:23 History of Present Illness Consult requested by Dr. Miner for upper gi bleed. Patient with epigastric pain which he thought from working out in the garden. He soon after began having dark stools and feeling weak. He was found to be anemic. Was transfused and feeling better today. Currently NPO. Not really having abdominal pain now. Denies n/v fever sweats chills shortness of breath or chest pain. Allergies and Home Medications Allergies Coded Allergies: No Known Drug Allergies (Unverified , 09/04/19) Patient Home Medication List Home Medication List Reviewed: Yes Aspirin (Aspirin EC) 81 Mg Tablet., 81 MG PO DAILY Prescribed by: SEGUN MINER on 08/30/21 1135 Atorvastatin Calcium (Atorvastatin Calcium) 40 Mg Tablet, 40 MG PO HS, (Reported) Entered as Reported by: KAELYN POTTS on 08/29/21923 Last Action: Reviewed Metformin HCl (Metformin HCl ER) 500 Mg Tab.er.24, 500 MG PO BID, (Reported) Entered as Reported by: KAELYN POTTS on 08/29/21922 Last Action: Reviewed Metoprolol Succinate (Metoprolol Succinate) 50 Mg Tab.er.24h, 50 MG PO DAILY, (Reported) Entered as Reported by: KAELYN POTTS on 08/29/21922 Last Action: Reviewed Pantoprazole Sodium (Pantoprazole Sodium) 40 Mg Tablet., 40 MG PO BID Prescribed by: SEGUN MINER on 08/30/21 1017 Sucralfate (Sucralfate) 1 Gram Tablet, 1 GM PO ACHS Prescribed by: SEGUN MINER on 08/30/21 1017 Past Dybyhff-Onahyg-Usbhvp Hx Patient Social History Smoking Status: Never a Smoker Recent Hopitalizations: No Alcohol Use?: No Have you traveled recently?: No Surgeries History of Surgeries: Yes Surgeries: CABG Respiratory History of Respiratory Disorde: No Cardiovascular History of Cardiac Disorders: Yes Cardiac Disorders: Coronary Artery Disease, High Cholesterol, Hypertension Neurological History of Neurological Disord: No Genitourinary History of Genitourinary Disor: No Gastrointestinal History of Gastrointestinal Di: No Musculoskeletal History of Musculoskeletal Dis: No Endocrine History of Endocrine Disorders: No Endocrine Disorders: Diabetes, Non-Insulin dep HEENT History of HEENT Disorders: No Cancer History of Cancer: No Psychosocial History of Psychiatric Problem: No Integumentary History of Skin or Integumenta: No Reviewed Nursing Assessment Reviewed/Agree w Nursing PMH: Yes Family Medical History Significant Family History: No Pertinent Family Hx Review of Systems-General Constitutional: No chills; weakness EENTM: No blurred vision, No double vision Respiratory: No cough, No dyspnea on exertion Cardiovascular: No chest pain, No palpitations Gastrointestinal: abdominal pain, melena; No nausea, No vomiting Genitourinary: No decreased output, No discharge Musculoskeletal: No back pain, No joint pain Skin: change in color Psychiatric/Neurological: Denies Anxiety, Denies Depressed, Denies Emotional Problems All Other Systems Reviewed Negative Unless Noted: Yes (Negative excepted noted.) Physical Exam-General Problems Physical Exam Vital Signs Vital Signs - First Documented 08/28/21 08/28/21 14:02 16:48 Temp 36.5 Pulse 105 Resp 18 B/P (MAP) 120/71 (87) Pulse Ox 97 O2 Delivery Room Air Capillary Refill : Less Than 3 Seconds General Appearance: WD/WN, no apparent distress HEENT: PERRL/EOMI, normal ENT inspection Neck: non-tender, supple Respiratory: chest non-tender, no respiratory distress, no accessory muscle use Cardiovascular: regular rate, rhythm, no JVD Gastrointestinal: soft, tenderness (minimal epigastric) Rectal: deferred Back: no CVA tenderness, no vertebral tenderness Extremities: non-tender, normal inspection Neurologic/Psychiatric: experience design director II-XII nml as tested, no motor/sensory deficits, alert, normal mood/affect, oriented x 3 Skin: warm/dry, pallor Lymphatic: no adenopathy Data Review Labs Laboratory Tests 08/28/21 13:58: White Blood Count 15.5H, Red Blood Count 2.87L, Hemoglobin 7.9L, Hematocrit 25L, Mean Corpuscular Volume 86, Mean Corpuscular Hemoglobin 28, Mean Corpuscular Hemoglobin Concent 32, Red Cell Distribution Width 14.0, Platelet Count 314, Mean Platelet Volume 10.9, Immature Granulocyte % (Auto) 1, Neutrophils (%) (Auto) 73, Lymphocytes (%) (Auto) 18, Monocytes (%) (Auto) 7, Eosinophils (%) (Auto) 0, Basophils (%) (Auto) 1, Neutrophils # (Auto) 11.3H, Lymphocytes # (Auto) 2.7, Monocytes # (Auto) 1.1H, Eosinophils # (Auto) 0.0, Basophils # (Auto) 0.1, Immature Granulocyte # (Auto) 0.2H, Neutrophils % (Manual) 78, Lymphocytes % (Manual) 17, Monocytes % (Manual) 5, Microcytosis SLIGHT, Sodium Level 135, Potassium Level 4.6, Chloride Level 102, Carbon Dioxide Level 21, Anion Gap 12, Blood Urea Nitrogen 39H, Creatinine 0.75, Estimat Glomerular Filtration Rate 110, BUN/Creatinine Ratio 52, Glucose Level 268H, Calcium Level 8.5, Corrected Calcium 8.7, Total Bilirubin 0.3, Aspartate Amino Transf (AST/SGOT) 19, Alanine Aminotransferase (ALT/SGPT) 37, Alkaline Phosphatase 66, Troponin I < 0.028, Total Protein 5.7L, Albumin 3.7, Lipase 23 08/28/21 15:18: Urine Color YELLOW, Urine Clarity CLEAR, Urine pH 5.5, Urine Specific [place] 1.015L, Urine Protein NEGATIVE, Urine Glucose (UA) 3+H, Urine Ketones 2+H, Urine Nitrite NEGATIVE, Urine Bilirubin NEGATIVE, Urine Urobilinogen 0.2, Urine Leukocyte Esterase NEGATIVE, Urine RBC (Auto) NEGATIVE, Urine RBC NONE, Urine WBC NONE, Urine Crystals NONE, Urine Bacteria NEGATIVE, Urine Casts NONE, Urine Mucus NEGATIVE, Urine Culture Indicated NO 08/28/21 20:08: Glucometer 165H 08/29/21 05:09: White Blood Count 12.2H, Red Blood Count 2.78L, Hemoglobin 7.8L, Hematocrit 24L, Mean Corpuscular Volume 87, Mean Corpuscular Hemoglobin 28, Mean Corpuscular Hemoglobin Concent 32, Red Cell Distribution Width 14.2, Platelet Count 242, Mean Platelet Volume 11.1, Immature Granulocyte % (Auto) 2, Neutrophils (%) (Auto) 62, Lymphocytes (%) (Auto) 25, Monocytes (%) (Auto) 10, Eosinophils (%) (Auto) 1, Basophils (%) (Auto) 1, Neutrophils # (Auto) 7.5, Lymphocytes # (Auto) 3.1, Monocytes # (Auto) 1.3H, Eosinophils # (Auto) 0.1, Basophils # (Auto) 0.1, Immature Granulocyte # (Auto) 0.2H, Sodium Level 137, Potassium Level 4.4, Chloride Level 107, Carbon Dioxide Level 21, Anion Gap 9, Blood Urea Nitrogen 28H, Creatinine 0.75, Estimat Glomerular Filtration Rate 110, BUN/Creatinine Ratio 37, Glucose Level 142H, Calcium Level 7.9L 08/29/21 05:32: Glucometer 136H 08/29/21 07:24: Glucometer 162H 08/29/21 11:10: Glucometer 150H 08/29/21 12:19: Lab Scanned Report Transfusion Reaction Form Assessment/Plan Assessment/Plan Assessment/Plan upper gi bleed anemia secondary to above epigastric abd pain discussed risks and benefits of egd all other indicated procedures and he understands and wishes to proceed EGD today. NPO Protonix Follow hgb transfuse as needed. PAULA PETERSON DO August 29, 2021 13:24
[2021-08-29] MEDS ORDERED: LACTATED RINGERS 1,000 ML IV ONE (14:15)
[2021-08-29] MEDS ORDERED: LACTATED RINGERS 1,000 ML IV STA (14:17)
[2021-08-29] MEDS ORDERED: HURRICAINE EXT TUBE (BENZOCAINE) XX PRN (14:30)
[2021-08-29] MEDS ORDERED: MIDAZOLAM 2 MG/2 ML (VERSED) VIAL ONE (14:42)
[2021-08-29] MEDS ORDERED: PROPOFOL INJECTION 50 ML IV ONE (14:42)
--- NOTE | 2021-08-29 14:57 | Progress Note-Post Operative ---
Post-Operative Progess Note Surgeon (s)/Pulverizer Mill Operator (s) Surgeon PAULA PETERSON DO Pulverizer Mill Operator: na Pre-Operative Diagnosis upper gi bleed Post-Operative Diagnosis duodenal ulcer Procedure & Operative Findings Date of Procedure 08/29/21 Procedure Performed/Findings egd c biopsies Anesthesia Type per catalyst operator Estimated Blood Loss Estimated blood loss (mL): none Specimens/Packing Specimens Removed duodenum, antrum, ge PAULA PETERSON DO August 29, 2021 14:57
--- NOTE | 2021-08-29 15:03 | Anesthesia-General Post-Op ---
MAC Patient Condition Mental Status/LOC: Same as Preop Cardiovascular: Satisfactory Nausea/Vomiting: Absent Respiratory: Satisfactory Pain: Controlled Complications: Absent Post Op Complications Complications None Follow Up Care/Instructions Patient Instructions None needed. Anesthesiology Discharge Order Discharge Order Patient is doing well, no complaints, stable vital signs, no apparent adverse anesthesia problems. No complications reported per nursing. EDMUNDO LONG CRNA August 29, 2021 15:03
[2021-08-29] MEDS: SUCRALFATE 1 GM (CARAFATE) TAB PO SCH ×2 (16:01→20:31)
--- NOTE | 2021-08-30 01:42 | OPERATIVE REPORT ---
DATE OF SERVICE: 08/29/2021 PREOPERATIVE DIAGNOSIS: Upper gastrointestinal bleed. POSTOPERATIVE DIAGNOSES: Duodenal ulcer. PROCEDURE: EGD with biopsies. SURGEON: Paula Zelaya DO ANESTHESIA: Per DESK DIRECTOR. ESTIMATED BLOOD LOSS: None. COMPLICATIONS: None. INDICATIONS: The patient is a 50-year-old male, who presented with symptoms of upper GI bleed, having dark stools for approximately one week and slight epigastric abdominal pain. He understands risks and benefits of procedure and wishes to proceed. Consent was signed in the chart. DESCRIPTION OF PROCEDURE: The patient was taken to the endoscopy suite, placed in left lateral recumbent position. Timeout was performed. Scope was inserted in mouth, down the esophagus, stomach and into the duodenum without difficulty, first portion of duodenum had small ulceration, no active bleeding. Biopsy of this area was obtained. No other pathology in the duodenum. Scope was slowly retracted back into the stomach where it was further insufflated. No polyps, masses or ulcerations. Biopsy of the antrum was obtained. Scope was retroflexed noting no other pathology. Scope was returned to its normal position, slowly withdrawn to distal esophagus. No polyps, masses or ulcerations. Biopsy of GE junction was obtained. Scope was slowly retracted back. No polyps, masses or ulcerations within the remainder of the esophagus. Scope was slowly retracted back until completely removed, noting no other pathology. RECOMMENDATIONS: The patient on Protonix currently. We will add Carafate 1 gram 4 times a day. We will put him on clear liquid diet. Follow hemoglobin. Advance diet as well as long as hemoglobin stable. Job ID: [id number] DocumentID: [id number] Dictated Date: 08/29/2021 14:58:52 Crew Clerk Date: 08/30/2021 01:41:47 Dictated By: PAULA ZELAYA DO [facility] HOSPITALAbelino
[2021-08-30] MEDS: NS IV 1000 ML 1,000 ML IV SCH (02:57)
[2021-08-30 03:05] VITALS: BP 116/57
[2021-08-30] MEDS: SUCRALFATE 1 GM (CARAFATE) TAB PO SCH ×3 (05:23→16:19)
[2021-08-30 05:50] LABS: HEMATOCRIT 25 % (40-54); HEMOGLOBIN 8.1 g/dL (13.3-17.7); MEAN CORPUSCULAR HEMOGLOBIN 29 pg (25-34); MEAN CORPUSCULAR HGB CONC 33 g/dL (32-36); MEAN CORPUSCULAR VOLUME 87 fL (80-99); MEAN PLATELET VOLUME 10.4 fL (9.0-12.2); PLATELET COUNT 204 10^3/uL (130-400); WHITE BLOOD COUNT 7.9 10^3/uL (4.3-11.0)
[2021-08-30] MEDS: inSUlin ASPART (NovoLOG) 1 UNIT/0.01 ML (CHARGE PER UNIT) SC SCH ×3 (06:00→15:57)
[2021-08-30 07:45] VITALS: BP 118/57
[2021-08-30] MEDS: PANTOPRAZOLE 40 MG (PROTONIX) VIAL IV SCH ×2 (08:11→08:49)
[2021-08-30] MEDS: METOCLOPRAMIDE INJ 10 MG/2 ML (REGLAN) IV SCH ×3 (08:11→13:16)
--- NOTE | 2021-08-30 09:38 | Progress Note - Surgery ---
Subjective Date Seen by a Provider: Aug 30, 2021 Time Seen by a Provider: 07:57 Subjective/Events-last exam Feeling better today. Tolerating clears. No abdominal pain. Hgb stable. Denies n/v fever sweats chill shortness of breath or chest pain. Objective Exam Vital Signs Date Time Temp Pulse Resp B/P (MAP) Pulse Ox O2 Delivery O2 Flow Rate FiO2 08/30/21 08:00 Room Air 08/30/21 07:45 37.1 96 18 118/57 (77) 96 Room Air 08/30/21 07:00 89 08/30/21 03:05 36.8 93 18 116/57 (76) 95 Room Air 08/30/21 01:00 83 08/29/21 23:00 37.0 92 20 113/53 (73) 95 Room Air 08/29/21 20:30 Room Air 08/29/21 20:18 37.0 94 20 114/56 (75) 96 Room Air 08/29/21 19:00 113 08/29/21 15:22 91 18 103/55 (71) 97 08/29/21 15:03 95 16 95 Room Air 08/29/21 14:58 95 16 100 Room Air 08/29/21 13:00 96 08/29/21 11:35 36.6 96 18 103/63 (76) 94 Room Air I & O 08/30/21 07:00 Intake Total 1950 ml Balance 1950 ml Capillary Refill : Less Than 3 Seconds General Appearance: No Apparent Distress, WD/WN HEENT: PERRL/EOMI, Moist Mucous Membranes; No Scleral Icterus (L), No Scleral Icterus (R) Neck: Normal Inspection, Supple Respiratory: Chest Non Tender, No Accessory Muscle Use, No Respiratory Distress Cardiovascular: Regular Rate, Rhythm, No JVD Gastrointestinal: non tender, soft Extremity: Normal Capillary Refill, Non Tender, No Calf Tenderness, No Pedal Edema Neurologic/Psychiatric: Alert, Oriented x3, Normal Mood/Affect Skin: Normal Color, Warm/Dry Lymphatic: No Adenopathy Results Lab Laboratory Tests 08/29/21 11:10: Glucometer 150H 08/29/21 12:19: Lab Scanned Report Transfusion Reaction Form 08/29/21 16:22: Glucometer 111H 08/29/21 20:54: Glucometer 131H 08/30/21 05:44: White Blood Count 7.9, Red Blood Count 2.83L, Hemoglobin 8.1L, Hematocrit 25L, Mean Corpuscular Volume 87, Mean Corpuscular Hemoglobin 29, Mean Corpuscular Hemoglobin Concent 33, Red Cell Distribution Width 15.2H, Platelet Count 204, Mean Platelet Volume 10.4 08/30/21 06:17: Glucometer 112H Assessment/Plan Assessment/Plan Assessment/Plan upper gi bleed anemia secondary to above duodenal ulcer Advance diet Protonix/Carafate Will need colonoscopy outpatient and repeat egd about 6 weeks Will follow up in office in about 3 weeks. PAULA PETERSON DO Aug 30, 2021 09:38
[2021-08-30] MEDS ORDERED: HYDROCORTISONE 100 MG/2 ML (Solu-CORTEF) VIAL IV PRN (10:15)
[2021-08-30] MEDS ORDERED: NS IV 500 ML 500 ML IV SCH (10:15)
[2021-08-30] MEDS ORDERED: EPINEPHrine INJECTION 1 MG/ML AMP IM PRN (10:15)
[2021-08-30] MEDS ORDERED: IRON DEXTRAN INJECTION 1,000 MG in NS (IVPB) 250 ML IV ONE (10:15)
[2021-08-30] MEDS ORDERED: diphenhydrAMINE 50 MG/ML INJ (BENADRYL) IV PRN (10:15)
[2021-08-30] MEDS ORDERED: RT-ALBUTEROL SULF 2.5 MG/3 ML PRE-MIX VIAL IH PRN (10:15)
[2021-08-30] MEDS ORDERED: PANT40TA52 PO (10:17)
[2021-08-30] MEDS ORDERED: SUCR1TAB PO (10:17)
[2021-08-30] MEDS ORDERED: IRON DEXTRAN INJECTION 25 MG in NS (IVPB) 5.75 ML IV ONE (10:30)
[2021-08-30] MEDS ORDERED: ASPI-1238 PO (11:35)
--- NOTE | 2021-08-30 12:57 | Discharge Summary ---
Diagnosis/Chief Complaint Date of Admission August 28, 2021 at 15:20 Date of Discharge Discharge Date: Aug 30, 2021 Admission Diagnosis Upper GI Bleed Primary Care Nick Riggs DO Discharge Diagnosis (1) CAD (coronary artery disease) (2) Essential (primary) hypertension Status: Chronic (3) Non-insulin dependent type 2 diabetes mellitus Status: Chronic (4) Hyperlipidemia Status: Chronic (5) Upper GI bleed Status: Acute (6) Symptomatic anemia Status: Acute Discharge Summary Discharge Physical Exam Allergies: Coded Allergies: No Known Drug Allergies (Unverified , 09/04/19) Vitals & I&Os Vital Signs Date Time Temp Pulse Resp B/P (MAP) Pulse Ox O2 Delivery O2 Flow Rate FiO2 08/30/21 16:40 36.7 97 18 118/59 95 Room Air General Appearance: No Apparent Distress, WD/WN Respiratory: Lungs Clear, No Respiratory Distress Cardiovascular: Regular Rate, Rhythm, No Murmur Neurologic/Psychiatric: Oriented x3 Hospital Course Patient was admitted to the hospital secondary to severe anemia and upper GI bleed. He was transfused 2 units of PRBCs and hemoglobin improved to 8.1. He was then given INFeD to replete his iron deficiency. He was no longer symptomatic and was able to ambulate without difficulty in his room. Surgery was consulted he underwent EGD which revealed a duodenal ulcer. He was started on Protonix twice daily and Carafate 4 times daily. He has follow-up with Dr. Zelaya the surgeon in 3 weeks and with his primary care doctor, Dr. Riggs next week. He is also been referred to cardiac rehab given his history of CAD status post CABG. I also referred him to endocrinology given distended stomach on CT concerning for gastroparesis. He was discharged home in stable improved condition to follow-up as above. Labs (last 24 hrs) Patient resulted labs reviewed. Pending Labs Imaging: Reviewed Imaging Report Discussion & Recommendations Discharge Planning: >30 minutes discharge planning Discharge Home Medications: Active Scripts Active Aspirin EC (Aspirin) 81 Mg Tablet. 81 Mg PO DAILY Hold your aspirin for 5 days and then resume. Pantoprazole Sodium 40 Mg Tablet. 40 Mg PO BID Sucralfate 1 Gram Tablet 1 Gm PO ACHS Reported Atorvastatin Calcium 40 Mg Tablet 40 Mg PO HS Metformin HCl ER (Metformin HCl) 500 Mg Tab.er.24 500 Mg PO BID Metoprolol Succinate 50 Mg Tab.er.24h 50 Mg PO DAILY Instructions to patient/family Please see electronic discharge instructions given to patient. Problem Qualifiers (1) CAD (coronary artery disease): Coronary Disease-Associated Artery/Lesion type: bypass graft [place] vs. transplanted heart: [place] heart Associated angina: without angina Qualified Codes: I25.810 - Atherosclerosis of coronary artery bypass graft(s) without angina pectoris (2) Hyperlipidemia: Hyperlipidemia type: mixed hyperlipidemia Qualified Codes: E78.2 - Mixed hyperlipidemia SEGUN JAMES MD Aug 30, 2021 12:57
[2021-08-30 15:40] VITALS: BP 118/59
[2021-08-30 16:40] VITALS: BP 118/59
--- NOTE | 2021-09-01 | Physician Query Clarification ---
PQ-Further Specificity Admission/Discharge Admission Date: August 28, 2021 at 15:20 Discharge Date: Aug 30, 2021 at 16:40 SEGUN Sanderson MD The medical record reflects the following clinical scenario: History/Risk Factors: 50 y/o male patient admitted with upper gastrointestinal bleed underwent EGD revealed duodenal ulcer, severe anemia was documented in medical record. Clinical Findings: Hgb- 7.9, 7.8 L, hct-25, 24 L, weakness. Treatment: 2 units transfused of PRBC, given INFeD. Question: Can you further specify anemia per the clinical indicators above? Please document a response in the Progress Notes or Discharge Summary. 1. Acute blood loss anemia 2. Iron deficiency anemia 3. Other, with explanation of the clinical findings. 4. Clinically undetermined, no explanation for the clinical findings. PHYSICIAN RESPONSE Can you specify per above: 1 In responding to this query, please exercise your independent professional judgment. The purpose of this communication is to more accurately reflect the complexity of your patients condition. The fact that a question is asked does not imply that any particular answer is desired or expected. Thank you for your timely response to this clarification. Requestors name: [ ] Phone # [ ] THIS PHYSICIAN QUERY FORM IS A PERMANENT PART OF THE MEDICAL RECORD JAYME STERN Sep 01, 2021 00:00 SEGUN JAMES MD Sep 01, 2021 17:11
== END 2021-08-30 16:40 | disposition home or self-care (01) | DRG 378 ==
LOC: EDUNIT# 13:47 → ER 13:48 → 4TH 15:20
PROVIDERS: ADMIT Family Medicine; ATTEND Family Medicine
PROC: 0DB78ZX Excision of Stomach, Pylorus, Via Natural or Artificial Opening Endoscopic, Diagnostic (ICD-10-PCS; 2021-08-29)
PROC: 0DB48ZX Excision of Esophagogastric Junction, Via Natural or Artificial Opening Endoscopic, Diagnostic (ICD-10-PCS; 2021-08-29)
PROC: 0DB98ZX Excision of Duodenum, Via Natural or Artificial Opening Endoscopic, Diagnostic (ICD-10-PCS; principal; 2021-08-29 14:39)
DX: K26.4 Chronic or unspecified duodenal ulcer with hemorrhage (principal); D62 Acute posthemorrhagic anemia; I25.10 Atherosclerotic heart disease of native coronary artery without angina pectoris; Z95.1 Presence of aortocoronary bypass graft; Z79.82 Long term (current) use of aspirin; E78.00 Pure hypercholesterolemia, unspecified; I10 Essential (primary) hypertension; E11.43 Type 2 diabetes mellitus with diabetic autonomic (poly)neuropathy; K31.84 Gastroparesis
CPT/HCPCS: 36415; 71045; 74176; 80048; 80053; 81000; 82947; 83690; 84484; 85007; 85025; 85027; 86850; 86900; 86901; 86920; 93005

== ENCOUNTER → 2021-09-08 | Outpatient (CLI) | payer OTHER ==
[~2021-09-08] MED LIST changes: +ASPI-1238 PO; +ATOR40TA70 PO; +METF-478 PO; +METO50TA7 PO; +PANT40TA52 PO; +SUCR1TAB PO
== END ==
LOC: CARD 08:30
PROVIDERS: ATTEND Internal Medicine Cardiovascular Disease
DX: I11.9 Hypertensive heart disease without heart failure (principal)
CPT/HCPCS: 93306

== ENCOUNTER → 2021-09-27 | Outpatient (CLI) | payer OTHER ==
[~2021-09-27] VITALS: Ht 180 cm; Wt 96.0 kg
[~2021-09-27] MED LIST changes: +CATHETER FLUSH 10 ML SYR IVP PRN
[2021-09-27 09:14] VITALS: BP 150/79
[2021-09-27 09:24] VITALS: BP 189/49
--- NOTE | 2021-09-27 11:01 | Cardiology Stress Test Report ---
Stress Test Report Date of Procedure/Referring: Date of Procedure: Sep 27, 2021 PCP Nick Kathleen DO Admitting Physician Admitting Physician: Attending Physician: Maribel Guevara MD Indications: HTN Baseline Heart Rate: 88 Baseline Blood Pressure: Blood Pressure Systolic: 189 Blood Pressure Diastolic: 49 Vital Signs Date Time Temp Pulse Resp B/P (MAP) Pulse Ox O2 Delivery O2 Flow Rate FiO2 09/27/21 09:14 83 17 150/79 (102) Baseline Vital Signs Vital Signs Date Time Temp Pulse Resp B/P (MAP) Pulse Ox O2 Delivery O2 Flow Rate FiO2 09/27/21 09:14 83 17 150/79 (102) Baseline EKG: Baseline EKG: NSR Summary: After explaining the procedure and details to the patient, he signed the consent and was brought to the stress nuclear laboratory. Patient exercised on standard Yogi protocol, EKG, heart rate and blood pressure were monitored continuously, resting and stress doses of radio tracer were injected, imaging was acquired and reviewed in the short axis, horizontal long axis and vertical long axis views Patient was able to exercise for a total of 8 minutes on Yogi protocol, METs 9.7 Maximum heart rate 155 Maximum blood pressure 212/44 Stress EKG, Minimal nondiagnostic changes Recovery EKG, Return to baseline TID: 0.8 SSS: 6 SDS: 3 EF: 61 Conclusion: 1. Good exercise tolerance for a total of 8 minutes on standard Yogi protocol 9.7 METS achieving 91% of maximal expected heart rate 2. Appropriate heart rate response to exercise with severe hypertensive response to exercise with peak blood pressure 212/44 return to baseline during recovery 3. Nondiagnostic EKG changes with exercise return to baseline during recovery 4. Diaphragmatic attenuation with mild decrease uptake involving the mid to apical inferolateral wall with mild reversibility. 5. Normal left ventricular size, ejection fraction 61% Copy Copies To 1: NICK KATHLEEN BASHAR J MD Sep 27, 2021 11:01
== END ==
LOC: EDSEX → CARD 07:30
PROVIDERS: ATTEND Internal Medicine Cardiovascular Disease
DX: I10 Essential (primary) hypertension (principal)
CPT/HCPCS: 78452; 93017; A9502

== ENCOUNTER 2021-10-04 10:29 | Outpatient (CLI) | payer OTHER ==
[~2021-10-04] VITALS: Ht 180.3 cm; Wt 102.1 kg
[~2021-10-04 10:29] MED LIST changes: -CATHETER FLUSH 10 ML SYR IVP PRN
[2021-10-04] MEDS ORDERED: PANT40TA52 PO (12:09)
[2021-10-04] MEDS ORDERED: FERR-84 PO (12:09)
[2021-10-04] MEDS ORDERED: SUCR1TAB PO (12:09)
[2021-10-04] MEDS ORDERED: MELA5TAB14 PO (12:09)
[2021-10-04] MEDS ORDERED: ASPI-999 PO (12:09)
== END 2021-10-04 12:10 | disposition home or self-care (01) ==
LOC: PREOP 10:29
PROVIDERS: ATTEND Surgery
DX: Z01.818 Encounter for other preprocedural examination (principal)

== ENCOUNTER 2021-10-09 08:40 | Outpatient (RCR) | payer OTHER ==
[~2021-10-09 08:40] MED LIST changes: +ASPI-999 PO; +FERR-84 PO; +MELA5TAB14 PO
[2021-10-25] MEDS ORDERED: METF-478 PO (13:35)
== END 2021-10-28 | disposition home or self-care (01) ==
LOC: CR3 08:40
PROVIDERS: ATTEND Family Medicine
DX: Z29.8 Encounter for other specified prophylactic measures (principal)

== ENCOUNTER 2021-10-13 11:05 | Day surgery (SDC) | payer OTHER ==
[~2021-10-13] VITALS: Ht 180 cm; Wt 102.1 kg
[2021-10-13] MEDS ORDERED: LACTATED RINGERS 1,000 ML IV ONE (11:11)
[2021-10-13] MEDS ORDERED: LACTATED RINGERS 1,000 ML IV STA (11:14)
[2021-10-13] MEDS ORDERED: HURRICAINE EXT TUBE (BENZOCAINE) XX PRN (11:15)
[2021-10-13 11:45] VITALS: BP 119/76
--- NOTE | 2021-10-13 12:24 | Progress Note-Pre Operative ---
Pre-Operative Progress Note H&P Reviewed The H&P was reviewed, patient examined and no changes noted. Date Seen by Provider: Oct 13, 2021 Time Seen by Provider: 12:24 Date H&P Reviewed: Oct 13, 2021 Time H&P Reviewed: 12:24 Pre-Operative Diagnosis: screening colonoscopy, hx duodenal ulcer and h pylori PAULA PETERSON DO Oct 13, 2021 12:24
[2021-10-13] MEDS ORDERED: PROPOFOL INJECTION 50 ML IV ONE ×2 (12:27→12:47)
[2021-10-13] MEDS ORDERED: SIMETHICONE 40 MG/0.6 ML (MYLICON DROPS) 30 ML BTL ONE (12:58)
[2021-10-13 13:10] VITALS: BP 84/50
--- NOTE | 2021-10-13 13:12 | Anesthesia-General Post-Op ---
MAC Patient Condition Mental Status/LOC: Same as Preop Cardiovascular: Satisfactory Nausea/Vomiting: Absent Respiratory: Satisfactory Pain: Controlled Complications: Absent Post Op Complications Complications None Follow Up Care/Instructions Patient Instructions None needed. Anesthesiology Discharge Order Discharge Order Patient is doing well, no complaints, stable vital signs, no apparent adverse anesthesia problems. No complications reported per nursing. ELIE VEGA CRNA Oct 13, 2021 13:12
--- NOTE | 2021-10-13 13:14 | Progress Note-Post Operative ---
Post-Operative Progess Note Surgeon (s)/Process Safety Engineering Technologist (s) Surgeon PAULA PETERSON DO Process Safety Engineering Technologist: na Pre-Operative Diagnosis screening colonoscopy, hx duodenal ulcer and h pylori Post-Operative Diagnosis slight gastritis,normal colon Procedure & Operative Findings Date of Procedure 10/13/21 Procedure Performed/Findings egd c biopsies, colonoscopy Anesthesia Type per tip cutter Estimated Blood Loss Estimated blood loss (mL): none Specimens/Packing Specimens Removed antrum, ge PAULA PETERSON DO Oct 13, 2021 13:14
[2021-10-13 13:15] VITALS: BP 85/50
--- NOTE | 2021-10-13 13:15 | Discharge Inst-Simple/Standard ---
Discharge Inst-Standard Patient Instructions/Follow Up Plan of Care/Instructions/FU: 2 weeks Garcia Activity as Tolerated: Yes Discharge Diet: Regular Diet PAULA PETERSON DO Oct 13, 2021 13:15
[2021-10-13 13:20] VITALS: BP 95/58
[2021-10-13 13:22] VITALS: BP 95/58
[2021-10-13 13:40] VITALS: BP 104/76
--- NOTE | 2021-10-13 23:02 | OPERATIVE REPORT ---
DATE OF SERVICE: 10/13/2021 PREOPERATIVE DIAGNOSES: Screening colonoscopy, history of a duodenal ulcer, history of H. pylori. POSTOPERATIVE DIAGNOSES: Normal esophagogastroduodenoscopy, normal colonoscopy. PROCEDURE: EGD with biopsies, colonoscopy. SURGEON: Paula Zelaya DO ANESTHESIA: Per AVIONICS SYSTEM ENGINEER. ESTIMATED BLOOD LOSS: None. COMPLICATIONS: None. INDICATIONS: The patient is a 51-year-old male needing colonoscopy and EGD for further evaluation. He understands risks and benefits of procedure, wishes to proceed. Consent was signed in the chart. DESCRIPTION OF PROCEDURE: The patient was taken to the endoscopy suite, placed in left lateral recumbent position. Timeout was performed. Scope was inserted in mouth, down the esophagus, stomach and into the duodenum without difficulty. There were no polyps, masses or ulcerations within the duodenum. Scope was slowly retracted back to stomach where it was further insufflated. No polyps, masses or ulcerations. Biopsy of the antrum was obtained. Scope was retroflexed noting no other pathology. Scope was returned to its normal position, slowly withdrawn until completely removed to the distal esophagus. Biopsy of the GE junction was obtained. Scope was then slowly retracted back to completely remove noting no other pathology. Digital rectal exam was performed. No palpable polyps, masses or ulcerations. Scope was inserted in the rectum and advanced all the way to cecum with minimal difficulty. Prep was adequate with irrigation and suction. Scope was then slowly retracted back. No polyps, masses or ulcerations within the cecum, ascending, transverse, descending and sigmoid colon. Once in the rectum, scope was retroflexed noting no other pathology. Scope was returned to its normal position, slowly withdrawn until completely removed. The patient tolerated procedure well without any complications, taken to recovery room in stable condition. RECOMMENDATIONS: The patient will need repeat colonoscopy in 10 years unless family history of colon cancer or personal history of polyps, which would then be 5 years. Any issues before that be seen at that time for reevaluation. Job ID: [id number] DocumentID: [id number] Dictated Date: 10/13/2021 13:18:13 Spindle Plumber Date: 10/13/2021 23:00:03 Dictated By: PAULA ZELAYA DO
== END 2021-10-13 13:47 | disposition home or self-care (01) ==
LOC: ENDO 11:05
PROVIDERS: ATTEND Surgery
DX: K29.50 Unspecified chronic gastritis without bleeding (principal); K21.00 Gastro-esophageal reflux disease with esophagitis, without bleeding; Z87.11 Personal history of peptic ulcer disease; Z86.19 Personal history of other infectious and parasitic diseases

== ENCOUNTER 2021-10-25 13:00 | Day surgery (SDC) | payer OTHER ==
[2021-10-25] VITALS (10 sets, daily range): BP systolic 125–143; BP diastolic 71–81
[~2021-10-25] VITALS: Ht 180.3 cm; Wt 102.1 kg
[2021-10-25 11:38] LABS: HEMATOCRIT 41 % (40-54); HEMOGLOBIN 12.9 g/dL (13.3-17.7); MEAN CORPUSCULAR HEMOGLOBIN 27 pg (25-34); MEAN CORPUSCULAR HGB CONC 31 g/dL (32-36); MEAN CORPUSCULAR VOLUME 86 fL (80-99); MEAN PLATELET VOLUME 10.6 fL (9.0-12.2); PLATELET COUNT 242 10^3/uL (130-400); WHITE BLOOD COUNT 6.4 10^3/uL (4.3-11.0)
[2021-10-25 11:40] LABS: BILIRUBIN,URINE NEGATIVE (NEGATIVE); CLARITY,URINE CLEAR; COLOR,URINE YELLOW; GLUCOSE, URINE (UA) NEGATIVE (NEGATIVE); KETONES,URINE NEGATIVE (NEGATIVE); LEUKOCYTE ESTERASE ,URINE NEGATIVE (NEGATIVE); NITRITE,URINE NEGATIVE (NEGATIVE); PROTEIN,URINE NEGATIVE (NEGATIVE)
[2021-10-25 11:46] LABS: BACTERIA,URINE NEGATIVE /HPF; RBC,URINE RARE /HPF; SQUAMOUS EPITHELIAL CELL,UR RARE /HPF; WBC,URINE RARE /HPF
--- NOTE | 2021-10-25 11:56 | Diagnostic Imaging Report ---
EXAMINATION: Chest radiograph, portable AP view. DATE: 10/25/2021 11:32 AM INDICATION: 51-year-old male, preoperative exam. COMPARISON: August 28, 2021. FINDINGS: Heart size and mediastinal contours are unchanged. There are median sternotomy wires. There is no identified pneumothorax. There is no large pleural effusion. There is no identified interval focal airspace consolidation. IMPRESSION: 1. No identified acute cardiopulmonary abnormality. Dictated by: Dictated on workstation # [id number]
[2021-10-25 11:58] LABS: PROTHROMBIN TIME PATIENT 13.5 SEC (12.2-14.7)
[2021-10-25 12:07] LABS: ALBUMIN 4.3 GM/DL (3.2-4.5); BILIRUBIN,TOTAL 0.4 MG/DL (0.1-1.0); CALCIUM 9.3 MG/DL (8.5-10.1); CREATININE SERUM 0.82 MG/DL (0.60-1.30); POTASSIUM 3.8 MMOL/L (3.6-5.0); TOTAL PROTEIN 6.9 GM/DL (6.4-8.2)
--- NOTE | 2021-10-25 12:18 | Conscious Sedation/ASA ---
Conscious Sedation Pre-Proced Time 12:17 ASA Score 3 For ASA 3 and 4: Consider anesthesia and medical clearance. Also, for patients with a history of failed moderate sedation consider anesthesia. Airway Lungs Heart ASA score ASA 1: a normal healthy patient ASA 2: a patient with a mild systemic disease (mid diabetes, controlled hypertension, obesity x ASA 3: a patient with a severe systemic disease that limits activity (angina, COPD, prior Myocardial infarction) ASA 4: a patient with an incapacitating disease that is a constant threat to life (CHF, renal failure) ASA 5: a moribund patient not expected to survive 24 hrs. (ruptured aneurysm) ASA 6: a declared brain- patient whose organs are being harvested. For emergent operations, add the letter E after the classification Mallampati Classification Grade 3 Sedation Plan Analgesia, Amnesia, Plan communicated to team members, Discussed options with patient/fam, Discussed risks with patient/fam The patient is an appropriate candidate to undergo the planned procedure, sedation, and anesthesia. The patient immediately re-assessed prior to indication. AMY ROCKWELL MD Oct 25, 2021 12:18
[~2021-10-25 13:00] MED LIST changes: +HEParin (CATH LAB) 2,000 ML IV ONE; +LIDOCAINE 1% INJ 20 ML VIAL ONE; +MIDAZOLAM 5 MG/5 ML (VERSED) VIAL ONE; +NS IV 1000 ML 1,000 ML IV SCH; +NS IV 1000 ML 1,000 ML ONE; +fentaNYL INJ 100 MCG/2 ML AMP ONE
[2021-10-25] MEDS ORDERED: HEParin 1000 UNIT/ML (10ML VIAL) FOR BOLUS ONE (13:15)
[2021-10-25] MEDS ORDERED: NITRO DRIP 25000 MCG/D5W 0 ML IV ONE (13:15)
[2021-10-25] MEDS ORDERED: METF-478 PO (13:35)
--- NOTE | 2021-10-25 13:36 | Discharge Inst-Post CATH ---
Discharge Inst-CATH/EP Problems Reviewed?: Yes Post Cardiac Cath/EP D/C Inst Follow Up/Plan Hold metformin for [address] Guevara's office in 2 to 4 weeks <b>CARDIAC CATH/EP PROCEDURE DISCHARGE INSTRUCTIONS</b> ACTIVITY * Go Home directly and rest. * Limit activity of the leg (or wrist if it was used) for 7 days including aerobics, swimming, jogging, bicycling, etc. * Restrict stair-climbing for 7 days if possible, if not, climb up with your non-cath leg, then bring together on the same step. * Avoid lifting, pushing, pulling or excessive movement of the affected extremity for 7 days. * Customary sexual activity may be resumed after 2 days-use caution not to use a position that strains or causes pain to the affected extremity. * No driving for 24 hours. * NO SMOKING. * Avoid straining for bowel movements for 7 days. * Gentle walking on level ground is allowed. * Returning to work will depend on the type of procedure and the results. Your doctor will discuss this with you. CALL YOUR DOCTOR FOR ANY OF THE FOLLOWING: *If bleeding from the puncture site occurs- Apply gentle pressure to site with clean cloth and call your doctor or EMS. * If a knot or lump forms under the skin, increases in size, or causes pain. * If bruising appears to be worsening or moving further down your leg instead of disappearing. * Temperature above 101 F. CARE OF YOUR GROIN INCISION; * Bruising or purple discoloration of the skin near the puncture site is common. * You may shower only, no bathtub bathing for 5 days. Be careful to avoid slipping as your leg may feel stiff. * If a closure device was used on your femoral artery, please see the attached guide regarding care of the device and your leg. * Leave dressing on FOR 24 hours. CARE OF YOUR WRIST INCISION; * Bruising or purple discoloration of the skin near the puncture site is common. * You may shower. * DO NOT submerge wrist. * Leave dressing on FOR 24 hours. AMY GUEVARA MD Oct 25, 2021 13:36
--- NOTE | 2021-10-25 13:43 | Cardiac Cath Report ---
Cardiac Cath Report Physician (s)/Card Cutter Helper (s) Physician AMY ROCKWELL MD Pre-Procedure Diagnosis Pre-Procedure Diagnosis: Coronary artery disease Post-Procedure Note Procedure Start Date: Oct 25, 2021 Name of Procedure: Left heart catheterization Vein graft angiogram NAM angiogram Findings/Procedure Note PROCEDURE NOTE: 51-year-old gentleman with history of coronary artery disease, CABG x3, had an abnormal stress test as scheduled for cardiac catheterization possible PTCA After explaining the procedure to the patient, all pros and cons were explained, all questions were answered. The patient signed the consent and then he was placed on the cardiac catheterization laboratory. Groin was prepped SL fashion local anesthesia was used. Sheath placed in the right femoral artery. Kat right and left catheter were used to access the coronary system.Vein Graft evaluated. NAM evaluated. I was unable to visualize the vein graft to the second obtuse marginal branch, it was indirectly seen getting filled backward from the first vein graft injection. I used the Kat right catheter and reshaped it multiple times without success, I tried with LCV catheter without success. Kat right catheter was advanced to the left ventricular cavity, pressure was measured, pullback LV to aorta was done. Left ventriculogram was not done, pressure was measured At the end of the procedure the sheath was removed. Closure device was deployed FINDINGS: Hemodynamics LV 129/24, end-diastolic pressure of 24 Aorta 127/70 mean of 98 ANATOMY: Left Main is free of obstructive disease Left Anterior Descending has severe stenosis proximally, occluded at the midportion, NAM to the LAD is patent, there is an area of severe stenosis beyond the anastomosis point. Artery is less than 2 mm in diameter. Left Circumflex has multiple lesions of severe stenosis. Vein graft to the first and vein graft to the second obtuse marginal branch are patent. Right Coronary Artery is large dominant artery with no obstructive disease giving collateral to the LAD system distally NAM to LAD is patent, the NAM is slightly tortuous, the LAD has severe stenosis beyond the anastomosis point, the artery is slightly less than 2 mm in diameter. I recommend conservative management for now. Vein Graft evaluation showed 2 vein grafts The lower vein graft is the vein graft to the first obtuse marginal branch that is patent with excellent flow distally filling the whole circumflex system The upper vein graft is the vein graft to the second obtuse marginal branch, it was not visualized directly due to difficulty accessing that area. It was visualized during the injection of the first vein graft and filling retrograde showing no obstructive disease LV Gram was not done, pressure was measured CONCLUSION: 1. Severe [place] coronary artery disease in the left system corrected with a bypass as described below. 2. Patent NAM to the LAD with severe stenosis at the LAD beyond the anastomosis point, distally, the artery is less than 2 mm in diameter. Conservative management is recommended, if patient is significantly symptomatic we will consider referral for high risk intervention 3. Patent vein graft to the first obtuse marginal branch and vein graft to the second obtuse marginal branch 4. Mildly elevated left ventricular end-diastolic pressure, patient is known to have ejection fraction of 60% from stress test DISCUSSION AND RECOMMENDATION: Continue to maximize medical therapy. Patient has persistent hyperlipidemia and spite of aggressive statin. Will consider adding Repatha Anesthesia Type: Conscious Sedation Estimated blood loss (mL): 20 ml Contrast Amount: 61 ml Total Radiation Dose: 785 mGy Post-Procedure Diagnosis Post-operative diagnosis: Coronary artery disease Hypertension Hyperlipidemia Diabetes mellitus AMY ROCKWELL MD Oct 25, 2021 13:43
[2021-10-25] MEDS ORDERED: PATIENT MAY USE OWN MEDS, ALL PO SCH (13:45)
[2021-10-25] MEDS ORDERED: NS IV 1000 ML 1,000 ML IV SCH (13:45)
== END 2021-10-25 17:55 | disposition home or self-care (01) ==
LOC: CATH 13:00 → SDC 13:59 → CATH 17:55
PROVIDERS: ATTEND Internal Medicine Cardiovascular Disease
DX: I25.10 Atherosclerotic heart disease of native coronary artery without angina pectoris (principal); I10 Essential (primary) hypertension; E78.2 Mixed hyperlipidemia; E11.9 Type 2 diabetes mellitus without complications; R00.0 Tachycardia, unspecified; I65.23 Occlusion and stenosis of bilateral carotid arteries; Z79.899 Other long term (current) drug therapy; Z95.1 Presence of aortocoronary bypass graft; Z79.84 Long term (current) use of oral hypoglycemic drugs
CPT/HCPCS: 71045; 80053; 80061; 81000; 85027; 85610; 85730; 87081; 93005; 93459; C1760; C1894; 36415